=== PATIENT | male | born 1965 | race Caucasian/White ===

== ENCOUNTER 2017-03-28 03:55 | Emergency (ER) | payer OTHER ==
[2017-03-28 04:02] VITALS: BP 133/83
[2017-03-28] MEDS ORDERED: HYDROCODONE/ACETAMINOPHEN 5-325 MG 6 TAB/DSPK PO PRN (04:42)
--- NOTE | 2017-03-28 04:46 | ER Document Report ---
HPI - HPI Patient complains to provider of: Lower back pain. Pain Level: 5 Context: Patient is a 51-year-old male who comes emergency department for chief complaint of lower back pain. He states he always has back pain, mainly in the mid to lower back, states he is retired and has degenerative disc disease from it. He is on gabapentin for it. He states tonight he feels like he has worse muscle spasms than usual and he has difficulty moving around even with his cane. He denies radiating symptoms down his legs, denies numbness, denies incontinence, denies fever, denies history of IV drug abuse. He states that he is pending a referral to get a spinal stimulator placed to help with his symptoms. [facility] - DERM Skin Color: Normal, [place] Past Medical History - General Information source: Patient - Social History Smoking Status: Never Smoker Frequency of alcohol use: None Drug Abuse: None Lives with: Family Family History: Arthritis, DM, Hyperlipidemia, Hypertension, Malignancy - Past Medical History Cardiac Medical History: Reports: Hx Hypercholesterolemia, Hx Hypertension Denies: Hx Coronary Artery Disease, Hx Heart Attack Pulmonary Medical History: Reports: Hx Asthma Denies: Hx Bronchitis, Hx COPD, Hx Pneumonia Neurological Medical History: Reports: Hx Migraine. Denies: Hx Cerebrovascular Accident, Hx Seizures Endocrine Medical History: Reports: Hx Diabetes Mellitus Type 2 - Borderline Renal/ Medical History: Denies: Hx Peritoneal Dialysis Musculoskeltal Medical History: Reports Hx Arthritis, Reports Hx Musculoskeletal Deformity, Reports Hx Musculoskeletal Trauma Psychiatric Medical History: Reports: Hx Depression - PTSD Past Surgical History: Reports: Hx Abdominal Surgery, Hx Oral Surgery, Hx Orthopedic Surgery - l4-l5, l5-s1 - Immunizations Hx Diphtheria, Pertussis, Tetanus Vaccination: Yes Vertical Provider Document - CONSTITUTIONAL General Appearance: WD/WN, No Apparent Distress - INFECTION CONTROL TRAVEL OUTSIDE OF THE [place] IN LAST 30 DAYS: No - HEENT HEENT: Atraumatic, Normal ENT Exam, Normocephalic - NECK Neck: Normal Inspection - RESPIRATORY Respiratory: Breath Sounds Normal, No Respiratory Distress O2 Sat by Pulse Oximetry: 98 - CARDIOVASCULAR Cardiovascular: Regular Rate, Regular Rhythm - GI/ABDOMEN Gastrointestinal: Abdomen Soft, Abdomen Non-Tender - BACK Back: negative: Normal Inspection - Patient moves with obvious discomfort. No midline tenderness. No saddle anesthesia. Tenderness over the general left lumbar and gluteal areas. Negative straight leg raise. Normal upper and lower extremity range of motion, strength, distal neurovascular exam Course - Re-evaluation Re-evalutation: Patient with no midline back tenderness, has significant muscle spasm on exam, ambulates with obvious discomfort. Negative straight leg raise. No neurological deficits. No concerning reported symptoms. Patient requesting treatment for muscle spasm. Because of the significant amount of muscle spasm he appears to have patient will be treated with diazepam. Discussed follow-up with primary care, he is already pending a referral for a stimulator for his back to be placed. Discussed return precautions in detail, patient states understanding and agreement. - Vital Signs Vital signs: Temp Pulse Resp BP Pulse Ox 97.6 F 74 20 133/83 H 98 03/28/17 03:55 03/28/17 03:55 03/28/17 03:55 03/28/17 03:55 03/28/17 03:55 Discharge - Discharge Clinical Impression: Muscle spasm Lower back pain Qualifiers: Chronicity: unspecified Back pain laterality: left Sciatica presence: without sciatica Qualified Code(s): M54.5 - Low back pain Condition: Stable Disposition: HOME, SELF-CARE Additional Instructions: Examination consistent with muscular spasm secondary to your chronic lower back pain. I recommend taking the Valium as prescribed, apply heat to the area, and rest. Follow-up with your referral for additional management of your back. Return if you develop any concerning or worsening symptoms including numbness, loss of bowel or bladder control, fever, or any other concerning symptoms. Prescriptions: Diazepam [Valium 5 mg Tablet] 1 - 2 tab PO TID #20 tablet
== END 2017-03-28 04:50 | disposition home or self-care (01) ==
LOC: ER 03:55
DX: M62.838 Other muscle spasm (principal); M54.5 Low back pain; E78.00 Pure hypercholesterolemia, unspecified; I10 Essential (primary) hypertension; E11.9 Type 2 diabetes mellitus without complications
CPT/HCPCS: 99283

== ENCOUNTER 2018-01-12 11:39 | Emergency (ER) | payer OTHER ==
[2018-01-12] MEDS ORDERED: ACETAMINOPHEN 325 MG TABLET PO ONE (12:05)
--- NOTE | 2018-01-12 12:08 | ER Document Report ---
ED Respiratory Problem - General Chief Complaint: Cold Symptoms Stated Complaint: COUGH,CONGESTION,EAR PAIN Time Seen by Provider: 01/12/18 11:47 Mode of Arrival: Ambulatory Information source: Patient, Parent Notes: 52-year-old male presented ED for complaint of cough congestion left ear pain and dehydration. His vital signs are stable. His lung sounds are clear. He was seen by a primary provider yesterday and started on doxycycline and Tessalon Perles. Patient states that he was told that he had a left ear infection yesterday there is no ear infection there today. Patient is 100% disabled . He does have a history of asthma COPD implanted device in his low back for herniated disc he also has history of blood pressure cholesterol migraines PTSD ADHD and OCD. Patient is alert oriented respirations regular and unlabored and able to walk with a even steady gait. TRAVEL OUTSIDE OF THE [place] IN LAST 30 DAYS: No - HPI Patient complains to provider of: Asthma, COPD, Cough Onset: Last week Duration: Continuous Initiating Event: URI Quality of pain: Achy, Throbbing Severity: Moderate Pain Level: 4 Context: Hx asthma, Hx COPD Cough: Nonproductive Sputum amount: None Associated symptoms: Earache, Fever - None today, PND, Runny nose, Sinus pain/ pressure, Sore Throat. denies: Wheezing Similar symptoms previously: Yes Recently seen / treated by doctor: Yes - Yesterday - Related Data Allergies/Adverse Reactions: cyclobenzaprine [From Flexeril] Allergy (Verified 01/12/18 12:23) ibuprofen [Ibuprofen] Allergy (Verified 01/12/18 11:59) lisinopril Allergy (Verified 01/12/18 12:23) venlafaxine Allergy (Verified 01/12/18 12:23) Vomiting Past Medical History - General Information source: Patient - Social History Smoking Status: Former Smoker Cigarette use (# per day): No Chew tobacco use (# tins/day): No Smoking Education Provided: No Frequency of alcohol use: None Drug Abuse: None Lives with: Family Family History: Arthritis, DM, Hyperlipidemia, Hypertension, Malignancy Patient has suicidal ideation: No Patient has homicidal ideation: No - Past Medical History Cardiac Medical History: Reports: Hx Hypercholesterolemia, Hx Hypertension Pulmonary Medical History: Reports: Hx Asthma, Hx COPD EENT Medical History: Reports: None Neurological Medical History: Reports: Hx Migraine Endocrine Medical History: Reports: Hx Diabetes Mellitus Type 2 Renal/ Medical History: Reports: None Malignancy Medical History: Reports None GI Medical History: Reports: None Musculoskeltal Medical History: Reports Hx Arthritis, Reports Hx Musculoskeletal Deformity, Reports Hx Musculoskeletal Trauma Skin Medical History: Reports None Psychiatric Medical History: Reports: Hx Attention Deficit Hyperactivity Disorder, Hx Depression - PTSD, Hx Obsessive Compulsive Disorder, Hx Post Traumatic Stress Disorder Traumatic Medical History: Reports: None Infectious Medical History: Reports: None Past Surgical History: Reports: Hx Abdominal Surgery - Lipomas removed, Hx Oral Surgery, Hx Orthopedic Surgery - l4-l5, l5-s1; stimulator - Immunizations Immunizations up to date: Yes Hx Diphtheria, Pertussis, Tetanus Vaccination: Yes Review of Systems - Review of Systems Constitutional: Recent illness EENT: Nose congestion, Nose discharge, Sinus pressure, Sinus discharge Cardiovascular: No symptoms reported Respiratory: Cough Gastrointestinal: No symptoms reported Genitourinary: No symptoms reported Male Genitourinary: No symptoms reported Musculoskeletal: Muscle pain, Muscle stiffness Skin: No symptoms reported Hematologic/Lymphatic: No symptoms reported Neurological/Psychological: No symptoms reported -: Yes All other systems reviewed and negative Physical Exam - Vital signs Vitals: Temp Pulse Resp BP Pulse Ox 98.2 F 68 20 131/76 H 95 01/12/18 11:44 01/12/18 11:44 01/12/18 11:44 01/12/18 11:44 01/12/18 11:44 - HEENT Head: Normocephalic, Atraumatic Eyes: Normal Pupils: PERRL Ears: Normal External canal: Normal Tympanic membrane: Normal Sinus: Normal Nasal: Purulent discharge, Swelling Mouth/Lips: Normal Mucous membranes: Normal Pharynx: Post nasal drainage. No: Erythema, Exudate, Peritonsillar abscess, Retropharyngeal abscess, Tonsillar hypertrophy, Uvular edema, Potential airway comprom. Neck: Normal - Respiratory Respiratory status: No respiratory distress Chest status: Nontender Breath sounds: Nonproductive cough Chest palpation: Normal Course - Re-evaluation Re-evalutation: 01/12/18 17:05 Patient signs and symptoms were consistent with an upper respiratory infection. Patient has high blood pressure and was taking guaifenesin. Patient was instructed that with blood pressure problems he is supposed to take Coricidin HB and use saline sprays and gargles for his symptoms as the guaifenesin can actually and really increase his blood pressure. Patient was instructed to follow-up with her primary doctor. After performing a Medical Screening Examination, I estimate there is LOW risk for ACUTE CORONARY SYNDROME, RESPIRATORY FAILURE, SEPSIS OR MENINGITIS, thus I consider the discharge disposition reasonable. I have reevaluated this patient multiple times and no significant life threatening changes are noted. The patient and I have discussed the diagnosis and risks, and we agree with discharging home with close follow-up. We also discussed returning to the Emergency Department immediately if new or worsening symptoms occur. We have discussed the symptoms which are most concerning (e.g., changing or worsening pain, trouble swallowing or breathing, neck stiffness, fever) that necessitate immediate return. - Vital Signs Vital signs: Temp Pulse Resp BP Pulse Ox 97.9 F 67 18 134/91 H 95 01/12/18 13:21 01/12/18 13:21 01/12/18 13:21 01/12/18 13:21 01/12/18 13:21 Discharge - Discharge Clinical Impression: URI (upper respiratory infection) Qualifiers: URI type: unspecified URI Qualified Code(s): J06.9 - Acute upper respiratory infection, unspecified Condition: Stable Disposition: HOME, SELF-CARE Instructions: Family Physicians / Practices Additional Instructions: UPPER RESPIRATORY ILLNESS: You have a viral infection of the respiratory passages -- a "cold." This common infection causes nasal congestion, drainage, and often sore throat and cough. It is highly contagious. The disease usually lasts about 10 to 14 days. There is no "cure" for the viral infection -- it must run its course. If there is a complication, such as bacterial infection in the nose, sinuses, middle ear, or bronchial tubes, antibiotics may be required. The antibiotics won't affect the virus. Drink plenty of fluids. A humidifier may help. An expectorant medication or decongestant may make you more comfortable. Use acetaminophen or ibuprofen for fever or aches. See the doctor if fever persists over two days, if there is any significant worsening of your symptoms, or if you simply fail to improve as expected. Continue your medication as prescribed by your PCP. Your x-ray does not show any acute changes. The does not show a pneumonia. The Tessalon Perles are for cough. Gargle with warm salt and soda solution to remove the postnasal drip from the back yet throat that is causing you to cough. Salt and soda solution 1 quart of water 1 tablespoon of salt 1 teaspoon of baking soda Mixed 3 ingredients together and boil for 1 minute Placed in a covered quart jar Use 1/2 ounce of cold solution to gargle 3 times a day COUGH-SUPPRESSANT & EXPECTORANT MEDICATION: You are to use a cough medication as needed for relief of symptoms. This medicine is a combination of an expectorant (to make the mucous thinner and more easily "coughed up") and a cough suppressant (to reduce the frequency of coughing). The cough-suppressant medicine is related to narcotics. You may experience mild nausea and sleepiness. Some patients who are very sensitive to narcotics may have stomach pain from this medicine. Taking the medicine with food reduces these side effects. Do not drive or work with machinery until you know how this medicine affects you. The expectorant should have no side effects. Iodine-containing expectorants (such as organidin) should not be taken by persons with active thyroid disease unless approved by your doctor. Call the doctor if you develop shortness of breath, hives, rash, itching, lightheadedness, or severe nausea and vomiting. USE OF ACETAMINOPHEN (Tylenol): Acetaminophen may be taken for pain relief or fever control. It's much safer than aspirin, offering a wider range of "safe" dosages. It is safe during . Some brand names are Tylenol, Panadol, Datril, Anacin 3, Tempra, and Liquiprin. Acetaminophen can be repeated every four hours. The following are maximum recommended dosages: >89 pounds or adults 650 mg to 900 mg Acetaminophen can be repeated every four hours. Maximum dose not to exceed 4000 mg a day. FOLLOW-UP CARE: If you have been referred to a physician for follow-up care, call the physician s office for an appointment as you were instructed or within the next two days. If you experience worsening or a significant change in your symptoms, notify the physician immediately or return to the Emergency Department at any time for re-evaluation. Forms: Elevated Blood Pressure
--- NOTE | 2018-01-12 12:44 | RADIOLOGY REPORT (SQ) ---
EXAM DESCRIPTION: CHEST 2 VIEWS COMPLETED DATE/TIME: 01/12/2018 12:28 pm REASON FOR STUDY: cough, congestion COMPARISON: Two-view chest 07/15/2012 EXAM PARAMETERS: NUMBER OF VIEWS: two views TECHNIQUE: Digital Frontal and Lateral radiographic views of the chest acquired. RADIATION DOSE: NA LIMITATIONS: none FINDINGS: LUNGS AND PLEURA: No opacities, masses or pneumothorax. No pleural effusion. MEDIASTINUM AND HILAR STRUCTURES: No masses or contour abnormalities. HEART AND VASCULAR STRUCTURES: Heart normal size. No evidence for failure. BONES: No acute findings. HARDWARE: Spinal stimulator electrodes are present over the lower thoracic spinal canal OTHER: No other significant finding. IMPRESSION: NO ACUTE RADIOGRAPHIC FINDING IN THE CHEST. TECHNICAL DOCUMENTATION: JOB ID: [id number] [employer]- All Rights Reserved Reading location - IP/workstation name: [email or web address]
[2018-01-12 13:23] VITALS: BP 134/91
== END 2018-01-12 13:23 | disposition home or self-care (01) ==
LOC: ER 11:39
DX: J06.9 Acute upper respiratory infection, unspecified (principal); H92.02 Otalgia, left ear; E86.0 Dehydration; E78.00 Pure hypercholesterolemia, unspecified; I10 Essential (primary) hypertension; E11.9 Type 2 diabetes mellitus without complications; Z88.6 Allergy status to analgesic agent
CPT/HCPCS: 71046; 99283

== ENCOUNTER 2019-08-19 14:02 | Emergency (ER) | payer OTHER ==
--- NOTE | 2019-08-19 14:22 | ER Document Report ---
ED Medical Screen (RME) - General Chief Complaint: Slurred Speech Stated Complaint: DIZZY/WEAK/SLURRED SPEECH Time Seen by Provider: 08/19/19 14:09 TRAVEL OUTSIDE OF THE [place] IN LAST 30 DAYS: No - HPI Notes: 08/19/19 14:19 53-year-old male to the emergency department with complaints of intermittent episodes of slurred speech since Thursday. His significant other who is with him states that these episodes started on Thursday and it will sound like he is drunk. She states he will be normal until all of a sudden he is slurring his speech. Patient states that he has numbness and tingling all over his body from past injuries so he is not really sure if he has increased numbness and tingling anywhere. He denies weakness in arm or leg. He denies vision loss. Denies any chest pain. He does admit to some slight nausea. He admits to some slight slight shortness of breath. He also states that he feels dizzy. He also states that he has had a headache since March 2019. He is unsure if his slurred speech gets worse when his headache gets worse. He states that he is prediabetic but he takes metformin. He is [facility]. Brief neurological exam illustrates cranial nerves II through XII intact, no slurred speech, no pronator drift, normal [id number] bilaterally, no leg drift, [id number] performed by the right leg is intact [id number] performed by the left leg is mildly decreased from an injury in the . Patient states this is not new. He has no facial droop. He has no nystagmus. He is alert and oriented x4. I performed a brief medical screening exam on the patient determined that he will need further evaluation by me inside provider. I placed initial orders and imaging studies in order to help expedite the patient's care. - Related Data Allergies/Adverse Reactions: cyclobenzaprine [From Flexeril] Allergy (Verified 01/12/18 12:23) ibuprofen [Ibuprofen] Allergy (Verified 01/12/18 11:59) lisinopril Allergy (Verified 01/12/18 12:23) venlafaxine Allergy (Verified 01/12/18 12:23) Vomiting Past Medical History - Past Medical History Cardiac Medical History: Reports: Hx Hypercholesterolemia, Hx Hypertension Pulmonary Medical History: Reports: Hx Asthma, Hx COPD Neurological Medical History: Reports: Hx Migraine Endocrine Medical History: Reports: Hx Diabetes Mellitus Type 2 Renal/ Medical History: Denies: Hx Peritoneal Dialysis Musculoskeltal Medical History: Reports Hx Arthritis, Reports Hx Musculoskeletal Deformity, Reports Hx Musculoskeletal Trauma Psychiatric Medical History: Reports: Hx Attention Deficit Hyperactivity Disorder, Hx Depression - PTSD, Hx Obsessive Compulsive Disorder, Hx Post Traumatic Stress Disorder Past Surgical History: Reports: Hx Abdominal Surgery - Lipomas removed, Hx Oral Surgery, Hx Orthopedic Surgery - l4-l5, l5-s1; stimulator - Immunizations Immunizations up to date: Yes Hx Diphtheria, Pertussis, Tetanus Vaccination: Yes Physical Exam - Vital signs Vitals: Temp Pulse Resp BP Pulse Ox 98.1 F 100 20 148/83 H 100 08/19/19 14:11 08/19/19 14:11 08/19/19 14:11 08/19/19 14:11 08/19/19 14:11 Course - Vital Signs Vital signs: Temp Pulse Resp BP Pulse Ox 98.1 F 100 20 148/83 H 100 08/19/19 14:11 08/19/19 14:11 08/19/19 14:11 08/19/19 14:11 08/19/19 14:11
--- NOTE | 2019-08-19 15:31 | RADIOLOGY REPORT (SQ) ---
EXAM DESCRIPTION: CHEST SINGLE VIEW COMPLETED DATE/TIME: 08/19/2019 3:19 pm REASON FOR STUDY: slurred speech, exhaustion COMPARISON: PA and lateral views of the chest from 01/12/2018. EXAM PARAMETERS: NUMBER OF VIEWS: One view. TECHNIQUE: An AP view of the chest was obtained. RADIATION DOSE: NA LIMITATIONS: None. FINDINGS: LUNGS AND PLEURA: No consolidation, pleural effusion or pneumothorax. MEDIASTINUM AND HILAR STRUCTURES: No mediastinal or hilar contour abnormality. HEART AND VASCULAR STRUCTURES: The cardiac silhouette and pulmonary vasculature are within normal karimi its. BONES: No acute findings. HARDWARE: Spinal stimulator. OTHER: No other finding. IMPRESSION: No acute cardiopulmonary process. TECHNICAL DOCUMENTATION: JOB ID: [id number] [employer] All Rights Reserved Reading location - IP/workstation name: [email or web address]
[2019-08-19 15:33] LABS: ABSOLUTE EOSINOPHILS # (AUTO) 0.1 10^3/uL (0.0-0.6); ABSOLUTE LYMPHOCYTES (AUTO) 1.3 10^3/uL (0.5-4.7); ABSOLUTE MONOCYTES (AUTO) 0.3 10^3/uL (0.1-1.4); BASOPHILS % (AUTO) 0.3 % (0-2); EOSINOPHILS % (AUTO) 2.2 % (0-6); HEMATOCRIT 38.3 % (37.9-51.0); LYMPHOCYTES % (AUTO) 22.3 % (13-45); MEAN CORPUSCULAR HEMOGLOBIN 31.1 pg (27.0-33.4); MEAN CORPUSCULAR HGB CONC 33.9 g/dL (32.0-36.0); MEAN CORPUSCULAR VOLUME 92 fl (80-97); PLATELET COUNT 128 10^3/uL (150-450); RED BLOOD COUNT 4.18 10^6/uL (4.35-5.55); RED CELL DISTRIBUTION WIDTH 14.8 % (11.5-14.0); SEGMENTED NEUTROPHILS % (AUTO) 70.2 % (42-78); TOTAL CELLS COUNTED % (AUTO) 100 %; WHITE BLOOD COUNT 5.7 10^3/uL (4.0-10.5)
[2019-08-19 15:39] LABS: APPEARANCE,URINE CLEAR; BILIRUBIN,URINE NEGATIVE (NEGATIVE); COLOR,URINE YELLOW; GLUCOSE, URINE >=500 mg/dL (NEGATIVE); KETONES,URINE TRACE mg/dL (NEGATIVE); LEUKOCYTE ESTERASE,URINE NEGATIVE (NEGATIVE); NITRITE,URINE NEGATIVE (NEGATIVE); PROTEIN,URINE NEGATIVE (NEGATIVE); URINE SPECIFIC GRAVITY 1.022; UROBILINOGEN,URINE NEGATIVE mg/dL (<2.0)
--- NOTE | 2019-08-19 15:48 | RADIOLOGY REPORT (SQ) ---
EXAM DESCRIPTION: CT HEAD WITHOUT COMPLETED DATE/TIME: 08/19/2019 3:25 pm REASON FOR STUDY: Episodes of slurred speech since Thursday COMPARISON: None. TECHNIQUE: Axial images acquired through the brain without intravenous contrast. Images reviewed wi th bone, brain and subdural windows. Additional sagittal and coronal reconstructions were generated. Images stored on PACS. All CT scanners at this facility use dose modulation, iterative reconstruction, and/or weight based d osing when appropriate to reduce radiation dose to as low as reasonably achievable (ALARA). [facility]: Dose Right [facility]: CareDose [facility]: Dose Right [facility]: Teradose 4D [facility]: Cubito RADIATION DOSE: CT Rad equipment meets quality standard of care and radiation dose reduction techniq ues were employed. CTDIvol: 53.2 mGy. DLP: 1044 mGy-cm. LIMITATIONS: None. FINDINGS: There is no acute intracranial hemorrhage, vascular territorial infarct, extra-axial fluid collection, mass effect or midline shift. There is no effacement of cerebral sulci or basal subarac hnoid cisterns. The danielle-white matter differentiation is preserved. The caliber the ventricles is c oncordant with the degree of sulcation. The orbits and globes are intact. The paranasal sinuses and the mastoid air cells are clear. There is no fracture of the calvarium. IMPRESSION: No acute intracranial abnormality. EVIDENCE OF ACUTE STROKE: NO. COMMENT: Quality ID # [id number]: Final reports with documentation of one or more dose reduction techniques (e.g., Automated exposure control, adjustment of the mA and/or kV according to patient size, use of iterative reconstruction technique) TECHNICAL DOCUMENTATION: JOB ID: [id number] [employer]- All Rights Reserved Reading location - IP/workstation name: [email or web address]
[2019-08-19 15:53] LABS: ALBUMIN 3.8 g/dL (3.5-5.0); ALKALINE PHOSPHATASE 76 U/L (38-126); ANION GAP 8 (5-19); ASPARTATE AMINO TRANSFERASE 22 U/L (17-59); BILIRUBIN,DIRECT 0.3 mg/dL (0.0-0.4); BILIRUBIN,TOTAL 0.4 mg/dL (0.2-1.3); BLOOD UREA NITROGEN 16 mg/dL (7-20); CALCIUM 9.2 mg/dL (8.4-10.2); CARBON DIOXIDE 31 mmol/L (22-30); CHLORIDE 98 mmol/L (98-107); GLUCOSE 301 mg/dL (75-110); POTASSIUM 4.6 mmol/L (3.6-5.0); TOTAL PROTEIN 6.9 g/dL (6.3-8.2)
[2019-08-19 15:54] LABS: ACETAMINOPHEN < 10 ug/mL (10-30); ALCOHOL < 10 mg/dL (NONE DETECTED); SALICYLATE < 1.0 mg/dL (2.0-20.0)
[2019-08-19 15:55] LABS: URINE AMPHETAMINES SCREEN NEGATIVE; URINE BARBITURATES SCREEN NEGATIVE; URINE BENZODIAZEPINES SCREEN NEGATIVE; URINE COCAINE SCREEN NEGATIVE; URINE MARIJUANA (THC) SCREEN NEGATIVE; URINE METHADONE SCREEN NEGATIVE; URINE PHENCYCLIDINE SCREEN NEGATIVE
[2019-08-19] MEDS ORDERED: MECLIZINE HCL 25 MG TABLET PO ONE (19:53)
--- NOTE | 2019-08-19 21:12 | ER Document Report ---
ED General - General Chief Complaint: Dizziness Stated Complaint: DIZZY/WEAK/SLURRED SPEECH Time Seen by Provider: 08/19/19 14:09 [facility] Care Provider: [facility] [Primary Care Provider] - Follow up as needed Information source: Patient Notes: Patient is a 53-year-old male presenting to the emergency department chief complaint of dizziness. Patient states this started on Thursday and patient has had increased sleep is had the sensation of being unstable and intermittently has had slurred speech. Patient has a prior medical history of diabetes and hypertension. At time of presentation patient is alert and oriented in no acute distress answering all questions appropriately. TRAVEL OUTSIDE OF THE [place] IN LAST 30 DAYS: No - HPI Onset: Other - This past Thursday Onset/Duration: Gradual, Persistent Quality of pain: No pain Severity: Moderate Pain Level: 0 Associated symptoms: Weakness Exacerbated by: Standing Relieved by: Remaining still Similar symptoms previously: No Recently seen / treated by doctor: No - Related Data Allergies/Adverse Reactions: cyclobenzaprine [From Flexeril] Allergy (Verified 01/12/18 12:23) ibuprofen [Ibuprofen] Allergy (Verified 01/12/18 11:59) lisinopril Allergy (Verified 01/12/18 12:23) venlafaxine Allergy (Verified 01/12/18 12:23) Vomiting Past Medical History - General Information source: Patient, Relative - Social History Smoking Status: Never Smoker Frequency of alcohol use: None Drug Abuse: None Lives with: Spouse/Significant other Family History: Arthritis, DM, Hyperlipidemia, Hypertension, Malignancy Patient has suicidal ideation: No Patient has homicidal ideation: No - Past Medical History Cardiac Medical History: Reports: Hx Hypercholesterolemia, Hx Hypertension Pulmonary Medical History: Reports: Hx Asthma, Hx COPD Neurological Medical History: Reports: Hx Migraine, Other - Patient reports traumatic brain injury Endocrine Medical History: Reports: Hx Diabetes Mellitus Type 2 Renal/ Medical History: Denies: Hx Peritoneal Dialysis Malignancy Medical History: Reports None GI Medical History: Reports: None Musculoskeletal Medical History: Reports Hx Arthritis, Reports Hx Musculoskeletal Deformity, Reports Hx Musculoskeletal Trauma Psychiatric Medical History: Reports: Hx Attention Deficit Hyperactivity Disorder, Hx Depression - PTSD, Hx Obsessive Compulsive Disorder, Hx Post Traumatic Stress Disorder Traumatic Medical History: Reports: Hx Traumatic Brain Injury Past Surgical History: Reports: Hx Abdominal Surgery - Lipomas removed, Hx Oral Surgery, Hx Orthopedic Surgery - l4-l5, l5-s1; stimulator - Immunizations Immunizations up to date: Yes Hx Diphtheria, Pertussis, Tetanus Vaccination: Yes Review of Systems - Review of Systems Constitutional: Malaise, Weakness EENT: Nose pain Cardiovascular: No symptoms reported Respiratory: No symptoms reported Gastrointestinal: No symptoms reported Genitourinary: No symptoms reported Male Genitourinary: No symptoms reported Musculoskeletal: No symptoms reported Skin: No symptoms reported Hematologic/Lymphatic: No symptoms reported Neurological/Psychological: No symptoms reported, Confusion, Weakness, Speech impairment, Other - Dizziness -: Yes All other systems reviewed and negative Physical Exam - Vital signs Vitals: Temp Pulse Resp BP Pulse Ox 98.1 F 100 20 148/83 H 100 08/19/19 14:11 08/19/19 14:11 08/19/19 14:11 08/19/19 14:11 08/19/19 14:11 Interpretation: Normal - General General appearance: Appears well, Alert - HEENT Head: Normocephalic, Atraumatic Eyes: Normal Pupils: PERRL - Respiratory Respiratory status: No respiratory distress Chest status: Nontender Breath sounds: Normal Chest palpation: Normal - Cardiovascular Rhythm: Regular Heart sounds: Normal auscultation Murmur: No - Abdominal Inspection: Normal Distension: No distension Bowel sounds: Normal Tenderness: Nontender Organomegaly: No organomegaly - Back Back: Normal, Nontender - Extremities General upper extremity: Normal inspection, Nontender, Normal color, Normal ROM, Normal temperature General lower extremity: Normal inspection, Nontender, Normal color, Normal ROM, Normal temperature, Normal weight bearing. No: Jose's sign - Neurological Neuro grossly intact: Yes Cognition: Normal Orientation: AAOx4 Selin Coma Scale Eye Opening: Spontaneous [place] Coma Scale Verbal: Oriented [place] Coma Scale Motor: Obeys Commands [place] Coma Scale Total: 15 Speech: Normal Motor strength normal: LUE, RUE, LLE, RLE Sensory: Normal Notes: At time of evaluation the patient is alert and oriented x3, Glascow coma scale of 15, cranial nerves II through XII are grossly intact with the exception of subjective dizziness, sensations intact, motor is intact, there are no signs of nystagmus, there is no pronator drift, there is no facial asymmetry, tongue protrusion is midline, reflexes are equal and bilateral, patient ambulates without ataxia, patient answers all questions appropriately follows commands appropriately. - Psychological Associated symptoms: Normal affect, Normal mood - Skin Skin Temperature: Warm Skin Moisture: Dry Skin Color: Normal Course - Re-evaluation Re-evalutation: 08/19/19 21:12 Patient has been reevaluated multiple times while in emergency department patient is likewise been kept on a monitoring coordinator without decompensation. On most recent reevaluation patient is alert oriented no acute distress we did review his laboratory EKG and radiologic results which demonstrate only significant finding of elevated blood glucose. Patient will receive 25 mg p.o. Antivert and will be reassessed. I have spoken at great length with the patient and family members of the need for the patient to decrease his sugar intake. Patient states that he probably will not be able to give up his Pepsi and sweet tea. 08/19/19 22:29 On reevaluation patient states that the Antivert seems to have helped and he feels much better patient states he feels well enough to be discharged home. I recommend that the patient follow-up with his local provider in the next several days and take medication as prescribed. Patient will be prescribed Antivert. - Vital Signs Vital signs: Temp Pulse Resp BP Pulse Ox 98.1 F 100 20 148/83 H 100 08/19/19 14:11 08/19/19 14:11 08/19/19 14:11 08/19/19 14:11 08/19/19 14:11 - Laboratory Result Diagrams: 08/19/19 14:57 08/19/19 14:57 Laboratory results interpreted by me: 08/19/19 08/19/19 08/19/19 14:57 14:57 14:57 RBC 4.18 L Hgb 13.0 L RDW 14.8 H Plt Count 128 L Carbon Dioxide 31 H Glucose 301 H Urine Glucose (UA) >=500 H Urine Ketones TRACE H Salicylates < 1.0 L Acetaminophen < 10 L Discharge - Discharge Clinical Impression: Dizziness, Hyperglycemia due to type 2 diabetes mellitus Condition: Stable Disposition: HOME, SELF-CARE Instructions: Dizziness ([facility]) Prescriptions: Meclizine HCl [Antivert 25 mg Tablet] 25 mg PO TID PRN #10 tablet PRN Reason: [facility]errals: [facility] [[facility]] - Follow up as needed
[2019-08-19 22:39] VITALS: BP 135/89
--- NOTE | 2019-08-20 23:35 | EKG REPORT ---
SEVERITY:- NORMAL ECG - SINUS RHYTHM : Confirmed by: Juarez Samayoa 20-Aug-2019 23:35:01
== END 2019-08-19 22:57 | disposition home or self-care (01) ==
LOC: ER 14:02
DX: R42 Dizziness and giddiness (principal); E11.65 Type 2 diabetes mellitus with hyperglycemia; R47.81 Slurred speech; R53.1 Weakness; J44.9 Chronic obstructive pulmonary disease, unspecified; I10 Essential (primary) hypertension; R53.81 Other malaise; Z79.84 Long term (current) use of oral hypoglycemic drugs; Z88.8 Allergy status to other drugs, medicaments and biological substances
CPT/HCPCS: 36415; 70450; 71045; 80053; 80307; 81001; 83735; 84484; 85025; 93005; 93010; 99284

== ENCOUNTER 2020-06-29 15:52 | Observation (INO) | payer OTHER ==
--- NOTE | 2020-06-29 16:07 | ER Document Report ---
ED Medical Screen (RME) - General Chief Complaint: Numbness Stated Complaint: NUMBNESS/RIGHT SIDE OF BODY Time Seen by Provider: 06/29/20 16:04 Primary Care Provider: [facility] [Primary Care Provider] - Follow up as needed Mode of Arrival: Ambulatory Notes: 54-year-old male presented to ED for complaint of numbness to the right side of his body. He states he also felt like he was very hot and flushed but he was afebrile at the time of seeing him. He did have full range of motion to both arms both legs was able to answer questions appropriately. He states he has had the numbness to the right side of his body since 9:00 in the morning. I did go back to speak with Dr. Alanis who stated that I would need to go ahead and call the stroke protocol but since it was more than 6 hours he would not be able to receive the medications. She stated he would need all the blood work and CT and be in a better manner immediately. He states he is also had other symptoms. He was unsteady when I tried to get him up and walking. I did take him back to the CT I had the CT completed the x-ray completed and then took him to room 11. They did [address] him on the monitor. I did tell Dr. Alanis that the radiologist stated that the CT was negative for a bleed. I have greeted and performed a rapid initial assessment of this patient. A comprehensive ED assessment and evaluation of the patient, analysis of test results and completion of medical decision making process will be conducted by an additional ED providers. TRAVEL OUTSIDE OF THE [place] IN LAST 30 DAYS: No - Related Data Allergies/Adverse Reactions: cyclobenzaprine [From Flexeril] Allergy (Verified 01/12/18 12:23) ibuprofen [Ibuprofen] Allergy (Verified 01/12/18 11:59) lisinopril Allergy (Verified 01/12/18 12:23) venlafaxine Allergy (Verified 01/12/18 12:23) Vomiting Past Medical History - Past Medical History Cardiac Medical History: Reports: Hx Hypercholesterolemia, Hx Hypertension Pulmonary Medical History: Reports: Hx Asthma, Hx COPD Neurological Medical History: Reports: Hx Migraine Endocrine Medical History: Reports: Hx Diabetes Mellitus Type 2 Renal/ Medical History: Denies: Hx Peritoneal Dialysis Musculoskeltal Medical History: Reports Hx Arthritis, Reports Hx Musculoskeletal Deformity, Reports Hx Musculoskeletal Trauma Psychiatric Medical History: Reports: Hx Attention Deficit Hyperactivity Disorder, Hx Depression - PTSD, Hx Obsessive Compulsive Disorder, Hx Post Traumatic Stress Disorder Traumatic Medical History: Reports: Hx Traumatic Brain Injury Past Surgical History: Reports: Hx Abdominal Surgery - Lipomas removed, Hx Oral Surgery, Hx Orthopedic Surgery - l4-l5, l5-s1; stimulator - Immunizations Immunizations up to date: Yes Hx Diphtheria, Pertussis, Tetanus Vaccination: Yes Physical Exam - Vital signs Vitals: Temp Pulse Resp BP Pulse Ox 97.8 F 89 20 127/79 H 99 06/29/20 16:07 06/29/20 16:07 06/29/20 16:07 06/29/20 16:07 06/29/20 16:07 Course - Vital Signs Vital signs: Temp Pulse Resp BP Pulse Ox 97.8 F 89 14 113/69 100 06/29/20 16:07 06/29/20 16:58 06/29/20 18:06 06/29/20 17:31 06/29/20 18:06 Doctor's Discharge - Discharge [facility]errals: [facility] [[facility]] - Follow up as needed
--- NOTE | 2020-06-29 16:44 | RADIOLOGY REPORT (SQ) ---
EXAM DESCRIPTION: CHEST SINGLE VIEW IMAGES COMPLETED DATE/TIME: 06/29/2020 4:34 pm REASON FOR STUDY: Right-sided numbness COMPARISON: AP view of the chest from 08/19/2019. EXAM PARAMETERS: NUMBER OF VIEWS: One view. TECHNIQUE: An AP view of the chest was obtained. RADIATION DOSE: NA LIMITATIONS: None. FINDINGS: LUNGS AND PLEURA: No consolidation, pleural effusion or pneumothorax. MEDIASTINUM AND HILAR STRUCTURES: No mediastinal or hilar contour abnormality. HEART AND VASCULAR STRUCTURES: The cardiac silhouette and pulmonary vasculature are within normal karimi its. BONES: No acute findings. HARDWARE: None in the chest. OTHER: No other finding. IMPRESSION: No acute cardiopulmonary process. TECHNICAL DOCUMENTATION: JOB ID: [id number] 2010 [email or web address]- All Rights Reserved Reading location - IP/workstation name: [email or web address]
--- NOTE | 2020-06-29 16:48 | RADIOLOGY REPORT (SQ) ---
EXAM DESCRIPTION: CT HEAD WITHOUT IMAGES COMPLETED DATE/TIME: 06/29/2020 3:26 pm REASON FOR STUDY: Right-sided numbness. Stroke protocol. COMPARISON: 08/19/2019 TECHNIQUE: Axial images acquired through the brain without intravenous contrast. Images reviewed wi th bone, brain and subdural windows. Additional sagittal and coronal reconstructions were generated. Images stored on PACS. All CT scanners at this facility use dose modulation, iterative reconstruction, and/or weight based d osing when appropriate to reduce radiation dose to as low as reasonably achievable (ALARA). [facility]: Dose Right [facility]: CareDose [facility]: Dose Right [facility]: Teradose 4D [facility]: [employer] RADIATION DOSE: CT Rad equipment meets quality standard of care and radiation dose reduction techniq ues were employed. CTDIvol: 53.2 mGy. DLP: 1070 mGy-cm. mGy. LIMITATIONS: None. FINDINGS: VENTRICLES: Normal size and contour. CEREBRUM: No masses. No hemorrhage. No midline shift. No evidence for acute infarction. Normal gra y-white matter differentiation. Mild patchy periventricular and deep white matter hypodense attenuat ion consistent with mild chronic small vessel ischemic change. CEREBELLUM: No masses. No hemorrhage. No alteration of density. No evidence for acute infarction. EXTRAAXIAL SPACES: No fluid collections. No masses. ORBITS AND GLOBE: No intra- or extraconal masses. Normal contour of globe without masses. CALVARIUM: No fracture. PARANASAL SINUSES: No fluid or mucosal thickening. SOFT TISSUES: No mass or hematoma. OTHER: No other significant finding. IMPRESSION: 1. No acute intracranial hemorrhage, mass, or evidence of acute territorial infarct. 2. Mild chronic small vessel ischemic change. EVIDENCE OF ACUTE STROKE: NO. COMMENT: Negative findings were communicated with the ordering provider per stroke protocol at the t luna of dictation. Quality ID # [id number]: Final reports with documentation of one or more dose reduction techniques (e.g., Au tomated exposure control, adjustment of the mA and/or kV according to patient size, use of iterative reconstruction technique) TECHNICAL DOCUMENTATION: JOB ID: [id number] 2010 [email or web address]- All Rights Reserved Reading location - IP/workstation name: [email or web address]
[2020-06-29 17:02] LABS: PARTIAL THROMBOPLASTIN TIME 32.2 SEC (23.5-35.8)
[2020-06-29 17:21] LABS: PROTHROMBIN TIME 12.4 SEC (11.4-15.4)
[2020-06-29 18:33] LABS: ABSOLUTE EOSINOPHILS # (AUTO) 0.2 10^3/uL (0.0-0.6); ABSOLUTE LYMPHOCYTES (AUTO) 1.2 10^3/uL (0.5-4.7); ABSOLUTE MONOCYTES (AUTO) 0.3 10^3/uL (0.1-1.4); ABSOLUTE NEUT (AUTO) 2.4 10^3/uL (1.7-8.2); BASOPHILS % (AUTO) 0.4 % (0-2); EOSINOPHILS % (AUTO) 4.6 % (0-6); HEMATOCRIT 37.4 % (37.9-51.0); HEMOGLOBIN 12.5 g/dL (13.5-17.0); LYMPHOCYTES % (AUTO) 29.5 % (13-45); MEAN CORPUSCULAR HEMOGLOBIN 32.7 pg (27.0-33.4); MEAN CORPUSCULAR HGB CONC 33.4 g/dL (32.0-36.0); MEAN CORPUSCULAR VOLUME 98 fl (80-97); MONOCYTES % (AUTO) 7.3 % (3-13); PLATELET COUNT 121 10^3/uL (150-450); RED BLOOD COUNT 3.83 10^6/uL (4.35-5.55); RED CELL DISTRIBUTION WIDTH 14.9 % (11.5-14.0); SEGMENTED NEUTROPHILS % (AUTO) 58.2 % (42-78); TOTAL CELLS COUNTED % (AUTO) 100 %
[2020-06-29 18:45] LABS: ALBUMIN 3.8 g/dL (3.5-5.0); ALKALINE PHOSPHATASE 65 U/L (38-126); ANION GAP 7 (5-19); ASPARTATE AMINO TRANSFERASE 21 U/L (17-59); BILIRUBIN,DIRECT 0.2 mg/dL (0.0-0.4); BILIRUBIN,TOTAL 0.4 mg/dL (0.2-1.3); BLOOD UREA NITROGEN 20 mg/dL (7-20); CALCIUM 9.2 mg/dL (8.4-10.2); CARBON DIOXIDE 31 mmol/L (22-30); CHLORIDE 98 mmol/L (98-107); GLUCOSE 278 mg/dL (75-110); POTASSIUM 4.3 mmol/L (3.6-5.0); TOTAL PROTEIN 6.7 g/dL (6.3-8.2)
--- NOTE | 2020-06-30 | ER Document Report ---
ED NIH Stroke Scale - NIH Stroke Scale When completed:: Before Alteplase *: 1. NIH scale should be completed with appropriate accompanying assessment tools. *: 2. The NIH should reflect what the patient is capable of doing and should not be coached by the clinician. 1a. Level of Consciousness: 0=Alert;keenly responsive -: 1=Drowsy -: 2=Obtunded -: 3=Coma/unresponsive or reflex to noxious stimuli. 1a. Responses: 0 1b. Orientation Questions: a. What month is it? -: b. How old are you? -: 0=Answers both questions correctly. -: 1=Answers one question correctly or patient is intubated or has orotracheal trauma. -: 2=Answers neither question correctly. 1b. Responses: 0 1c. Response to commands: a. Open and close eyes? -: b. Supply Service Worker and release hand? -: Credit is given despite weakness. Demonstration of task is permitted. Substitute command if hands cannot be used. -: 0=Performs both tasks correctly -: 1=Performs one task correctly -: 2=Performs neither task correctly 1c. Responses: 0 2. Gaze: Establish eye contact and instruct patient to "Follow my finger" -: 0=Normal -: 1=Partial gaze palsy. Gaze is abnormal in one or both eyes, but where forced deviation or total gaze paresis is not present. -: 2=Forced deviation or total gaze paresis. 2. Responses: 0 3. Visual [place]te[place]: Sees fingers in all four quadrants. -: 0=No visual loss. -: 1=Partial hemianopsia. -: 2=Complete hemianopsia. -: 3=Bilateral hemianopsia (including Cortical blindness) 3. Responses: 0 4. Facial Movement: Instruct patient to: -: a. Show me your teeth -: b. Raise your eyebrows -: c. Close your eyes -: d. Smile -: 0=Normal symmetrical movement -: 1=Minor paralysis (flattened nasolabial fold, asymmetry on smiling). -: 2=Partial paralysis (total or near total paralysis of lower face). -: 3=Complete paralysis of upper and lower face 4. Responses: 0 5. Motor functions (left arm): Alternate sides and extend each arm with palms down (90 degrees if sitting or 45 degrees for supine). -: 0=No drift;limb holds for full 10 seconds. -: 1=Drift; limb holds but drifts down before full 10 seconds, but does not hit bed. -: 2=Some effort against gravity; limb cannot get to or maintain position. -: 3=No effort against gravity; limb falls. -: 4=No movement. -: UN=Amputation, joint fusion, explain in comments. 5. Responses (left arm): 0 5. Motor Functions (right arm): Alternate sides and extend each arm with palms down (90 degrees if sitting or 45 degrees for supine). -: 0=No drift;limb holds for full 10 seconds. -: 1=Drift; limb holds but drifts down before full 10 seconds, but does not hit bed. -: 2=Some effort against gravity; limb cannot get to or maintain position. -: 3=No effort against gravity; limb falls. -: 4=No movement. -: UN=Amputation, joint fusion, explain in comments. 5. Responses (right arm): 1 6. Motor Functions (left leg): With patient lying supine, alternate sides and extend each leg (30 degrees always while supine). -: 0=No drift, leg holds position for full 5 seconds -: 1=Drift; leg falls before full 5 seconds but does not hit bed. -: 2=Some effort against gravity, leg falls to bed but some effort against gravity. -: 3=No effort against gravity, leg falls to bed immediately. -: 4=No movement. -: UN=Amputation, joint fusion; explain in comments. 6. Responses (left leg): 0 6. Motor Functions (right leg): With patient lying supine, alternate sides and extend each leg (30 degrees always while supine). -: 0=No drift, leg holds position for full 5 seconds -: 1=Drift; leg falls before full 5 seconds but does not hit bed. -: 2=Some effort against gravity, leg falls to bed but some effort against gravity. -: 3=No effort against gravity, leg falls to bed immediately. -: 4=No movement. -: UN=Amputation, joint fusion; explain in comments. 6. Responses (right leg): 1 7. Limb Ataxia: With eyes open instruct patient to: -: a. "Touch your finger to your nose". -: b. "Touch your heel to your pickard" -: 0=Absent -: 1=Present in one limb. -: 2=Present in two limbs. -: UN=Amputation or joint fusion; explain in comments. 7. Responses: 0 8. Sensory: Test sensation using pinprick or noxious stimuli. Test as many body parts as possible. -: 0=Normal;no sensory loss -: 1=Mile to moderate sensory loss (patient feels pin prick but is less sharp on affected side). -: 2=Severe or total sensory loss. 8. Responses: 2 9. Best Language: Instruct patient to: -: a. "Describe what you see in this picture." -: b. "Name the items in this picture." -: c. "Read these sentences." -: 0=No aphasia, normal -: 1=Mild to moderate aphasia. -: 2=Severe aphasia -: 3=Mute, global aphasia, no usable speech or auditory comprehension. 9. Responses: 0 10. Articulation, Dysarthia: Instruct patient to: -: "Read these words" or "Repeat these words" -: 0=Normal -: 1=Mild to moderate; patient may slur some words but can be understood without difficulty. -: 2=Severe; patients speech so slurred as to be unintelligible in the absence of dysphasia. -: UN=Intubated or other physical barrier, explain in comments. 10. Responses: 0 11. Extinction or inattention: 0=No abnormality -: 1= Visual, tactile, auditory, spatial, or personal inattention or extinction to bilateral simulation in one or the sensory modalities. -: 2=Profound linus-inattention or linus-inattention to more than one modality; does not recognize own hand. 11. Responses: 0 Total Score: 4
--- NOTE | 2020-06-30 00:01 | ER Document Report ---
ED General - General Chief Complaint: Numbness Stated Complaint: NUMBNESS/RIGHT SIDE OF BODY Time Seen by Provider: 06/29/20 16:04 Mode of Arrival: Ambulatory TRAVEL OUTSIDE OF THE [place] IN LAST 30 DAYS: No - HPI Context: Time:2349 Chief Complaint: [Right-sided numbness and tingling] [This is a 54-year-old male who presents to the emergency department complaining of diffuse right-sided numbness and tingling that started at approximately 0 900 this morning. Patient states he has a history of hypertension and diabetes but he denies any prior history of stroke. Patient denies motor weakness, slurred speech, visual changes, headache, chest pain, shortness of breath. Patient denies history of COVID-19 infection, known exposure to Covid positive persons or persons under suspicion for COVID-19. Patient denies loss of sense of taste or sense of smell. Patient denies history of having similar symptoms in the past. ] History obtained from [patient] Symptoms began:[0 900] Onset: [Sudden] Timing: Sudden] Quality: [Numbness and tingling] Intensity: [Moderate] Location: [Entire right side of body] Radiation: [Denies] [The pain does not migrate to a new location.] Aggravating factors: [none] Relieving factors: [none] [Denies] SOB [Denies] nausea [Denies] vomiting [Denies] sweats [Denies] fever [Denies] cough [Denies] calf or leg swelling or pain - Related Data Allergies/Adverse Reactions: cyclobenzaprine [From Flexeril] Allergy (Verified 01/12/18 12:23) ibuprofen [Ibuprofen] Allergy (Verified 01/12/18 11:59) lisinopril Allergy (Verified 01/12/18 12:23) venlafaxine Allergy (Verified 01/12/18 12:23) Vomiting Past Medical History - General Information source: Patient - Social History Smoking Status: Never Smoker Frequency of alcohol use: None Drug Abuse: None Family History: Reviewed & Not Pertinent, Arthritis, DM, Hyperlipidemia, Hypertension, Malignancy - Past Medical History Cardiac Medical History: Reports: Hx Hypercholesterolemia, Hx Hypertension Pulmonary Medical History: Reports: Hx Asthma, Hx COPD Neurological Medical History: Reports: Hx Migraine Endocrine Medical History: Reports: Hx Diabetes Mellitus Type 2 Renal/ Medical History: Denies: Hx Peritoneal Dialysis Musculoskeletal Medical History: Reports Hx Arthritis, Reports Hx Muscu loskeletal Deformity, Reports Hx Musculoskeletal Trauma Psychiatric Medical History: Reports: Hx Attention Deficit Hyperactivity Disorder, Hx Depression - PTSD, Hx Obsessive Compulsive Disorder, Hx Post Traumatic Stress Disorder Traumatic Medical History: Reports: Hx Traumatic Brain Injury Past Surgical History: Reports: Hx Abdominal Surgery - Lipomas removed, Hx Oral Surgery, Hx Orthopedic Surgery - l4-l5, l5-s1; stimulator - Immunizations Immunizations up to date: Yes Hx Diphtheria, Pertussis, Tetanus Vaccination: Yes Review of Systems - Review of Systems Notes: Review of systems as below unless otherwise stated in HPI. CONSTITUTIONAL [No] fever, [No] chills. EYES [No] eye pain. ENT [No] URI symptoms, [No] sore throat, [No] ear pain. CARDIOVASCULAR [No] chest pain, [No] palpitations, [No] edema. RESPIRATORY [No] Cough, [No] SOB, [No] wheezing. GASTROINTESTINAL [No] abdominal pain, [No] nausea, [No] Diarrhea, [No] Vomiting, [No] constipation, [No] melena, [No] rectal bleeding. GENITOURINARY [No] dysuria, [No] urinary frequency, [No] hematuria, [No] urinary urgency MUSCULOSKELETAL [No] Back pain. SKIN [No] Rash. NEUROLOGIC [No] Headache, [No] recent seizures, [No] paralysis,[positive] parathesias. ENDOCRINE [No] polyuria. HEMO/LYMPATIC [No] easy brusing PSYCHIATRIC [No] depression. Physical Exam - Vital signs Vitals: Temp Pulse Resp BP Pulse Ox 97.8 F 89 20 127/79 H 99 06/29/20 16:07 06/29/20 16:07 06/29/20 16:07 06/29/20 16:07 06/29/20 16:07 - Notes Notes: CONSTITUTIONAL [Vital signs reviewed, Patient appears to be in no acute distress, Alert and oriented X 3, Normal stature.] HEAD [Atraumatic, Normocephalic.] EYES [Eyes are normal to inspection, No discharge from eyes, Extraocular muscles intact, Sclera are normal, Conjunctiva are normal.] ENT [External ears normal to inspection, Nose examination normal, Mouth normal to inspection.] NECK [Normal ROM, No jugular venous distention, No meningeal signs, ] RESPIRATORY CHEST [Chest is nontender, Breath sounds normal, No respiratory distress.] CARDIOVASCULAR [RRR, No murmurs, Normal S1 S2, No rub, No gallop.] ABDOMEN [Abdomen is nontender, No pulsatile masses, No other masses, Bowel sounds normal, No distension, No peritoneal signs, No hernias.] BACK [There is no CVA Tenderness, There is no tenderness to palpation, Normal inspection.] UPPER EXTREMITY [Inspection normal, No cyanosis, No clubbing, No edema, LOWER EXTREMITY [Inspection normal, No cyanosis, No clubbing, No edema, No calf tenderness, NEURO [No focal motor deficits, patient complains of sensory deficits on palpation of right face right upper extremities right hand right lower extremities, speech normal.] SKIN [Skin is warm, Skin is dry, Skin is normal color.] PSYCHIATRIC [Normal affect. ] Course - Re-evaluation Re-evalutation: 06/30/20 00:18 Results of ED MSE discussed with patient. Recommendation for admission discussed with patient. Patient was agreeable to this. - Vital Signs Vital signs: Temp Pulse Resp BP Pulse Ox 98.1 F 89 17 167/62 H 97 06/29/20 23:31 06/29/20 23:40 06/29/20 23:40 06/29/20 23:40 06/29/20 23:40 - Laboratory Results Result Diagrams: 06/29/20 16:35 06/29/20 16:35 Laboratory Results Interpreted: 06/29/20 06/29/20 16:35 16:35 RBC 3.83 L Hgb 12.5 L Hct 37.4 L MCV 98 H RDW 14.9 H Plt Count 121 L Sodium 135.6 L Carbon Dioxide 31 H Glucose 278 H Critical Laboratory Results Reviewed: No Critical Results - Patient's glucose is elevated but is less than 300 Attending or Supervising Physician who Reviewed Labs: ISABELLA BELLO IV - Radiology Results Critical Radiology Results Reviewed: No Critical Results Attending or Supervising Physician who Reviewed Radiology: ISABELLA BELLO IV - EKG Interpretation by Me Additional EKG results interpreted by me: 06/30/20 00:13 EKG obtained on 06/29/2020 at 1634 hrs. was interpreted by this MD. Findings: Normal sinus rhythm, rate 87, normal axis, P waves preceding QRS complexes, MO interval appears to be within normal limits, QRS complex appears narrow, QTC is 438, there are no obvious patterns of ST segment elevation, depression or reciprocal changes seen to suggest acute myocardial ischemia or infarction. When compared with prior EKG from 08/19/2019 other than some baseline artifact the cruise morphology of the 2 EKGs appears unchanged. Impression: Normal sinus rhythm with nonspecific ST segments. - Consults Dr. Srivastava, Hospitalist Time consulted: 23:03 Reason for consultation: 06/30/20 00:20 new onset right sided sensory defiicit, outside window for lytic therapy Consulted provider: will come to ER Critical Care Note - Critical Care Note Total time excluding time spent on procedures (mins): 30 - management of stroke alert patient Discharge - Discharge Clinical Impression: Right-sided sensory deficit present Condition: Stable Disposition: ADMITTED OBSERVATION Admitting Provider: [facility] Unit Admitted: [facility]
--- NOTE | 2020-06-30 00:02 | ER Document Report ---
ED Alteplase Inc/Exc Criteria - Date/Time patient last known well: Date/Time: 06/29/2020 at 0900 hrs. - Date/Time patient arrived in ED: _: 06/29/2020 at 1552 - Inclusion Criteria: 1: Patient presented to ED within 4.5 hours of acute ischemic stroke symptom onset? -: No 2: Did baseline CT exclude intracranial hemorrhage and/or other risk factors? -: Yes 3: Is the age of the patient 18 years of age or greater? -: Yes : If any of the above questions are answered "NO" then stop, patient is not a candidate for Alteplase, : If all of the above questions are answered "YES" then continue with Exclusion Criteria. - Exclusion Criteria: 1: Is there evidence of intracranial hemorrhage on baseline CT? 2: Is there suspicion of subarachnoid hemorrhage (even if CT negative)? 3: Is there a history of serious head trauma, recent previous stroke or RI within 3 months? 4: Does the patient have a clinical presentation consistent with RI or post-RI p ericarditis? 5: Is there history of intracranial hemorrhage? 6: On repeated measurement is Systolic BP greater than 185mmHg or Diastolic BP greater that 110 mmHg and is aggressive treatment needed to reduce blood pressure to these limits (e.g. constant infusion of an anti-hypertensive)? 7: Did the patient awake with stroke symptoms? 8: Has the patient had a lumbar puncture or an arterial puncture at a non- compressile site within 7 days? 9: With in the last 14 days did the patient have surgery or major trauma? 10: Is the patient or less than 2 weeks? 11: Was there any active bleeding or acute trauma? 12: Does the patient have intracranial neoplasm, arteriovenous malformation or aneurysm? 13: Does the patient have abnormal glucose (less than 50 or greater than 400mg/dl)? Record glucose in Comment. 14: Patient has rapidly improving symptoms at the time Alteplase is to be Administered. 15: Does the patient have any risks for bleeding, including but not limited to: a.: Current use of Coumadin with PT greater than 15 seconds or INR greater than 1.7. b.: Current use of Pradaxa (Dabigatran). c.: Heparin administereed within the past 48 hours and PTT elevated. d.: Platelet count less than 100,000/mm. e.: Major surgery or serious trauma within 14 days. f.: Gastrointestinal or gynecological urinary bleeding within 14 days. g.: Myocardial Infarction (RI) within 3 months. : If the answer to any of the above questions is "YES" then stop, the patient is not a candidate for Alteplase. : If the answer to all of the above questions is "NO" then the patient may be eligible for the Administration of Alteplase. : If the patient is noted to have seizure activity at onset of Stroke symptoms; Consult Neurologist for further evaluation. - The patient is: -: Included and is eligible to receive Alteplase. *Initiate bed placement at higher level of care* Reviewed risks & benefits of thrombolytic therapy: I have reviewed the risks and benefits of thrombolytic therapy with the patient and/or his/her family. -: Excluded and not eligible to receive Alteplase for the above exclusions. --: Yes - Presented greater than 4.5 hours so they can give your -: Excluded and not eligible to receive Alteplase for other reasons (specify in comments): - Diagnosis of TIA: -: Patient presented with transient symptoms that are now resolved and no other neurologic findings are currently present. List symptoms in comments. -: Patient is NOT a candidate for tPA. -: ____(put name in comment) has been consulted for admission and continued evaluation of risk factor assessment.
[2020-06-30] MEDS ORDERED: DEXTROSE 50%-WATER 25 GM/50 ML DISP.SYRIN IV PRN ×2 (01:49)
[2020-06-30] MEDS ORDERED: DEXTROSE 40% GEL 15 GM TUBE PO PRN ×2 (01:49)
[2020-06-30] MEDS ORDERED: GLUCAGON,HUMAN RECOMB 1 MG INJ IM PRN (01:49)
--- NOTE | 2020-06-30 01:49 | PDOC H&P ---
History of Present Illness Admission Date/PCP: [facility] Patient complains of: Right sided numbness and tingling History of Present Illness: JEANNIE BARONE is a 54 year old male Patient has hypertension and type 2 diabetes. He never had a stroke or acute cardiovascular event in his life. Around 9:00 in the morning he started experiencing fairly abruptly right-sided tingling and numbness, complete loss of sensation. He was able to walk and continue to perform motor tasks but he said his sensation was completely gone on the right side. The patient is left- handed. He did not have any headache, no dizziness, no chest pain no shortness of breath. Later he decided to come to the emergency department. Initial neurological examination did not detect any other abnormality except loss of sensation on the right side. He had CT scan of the head which was unremarkable. He was not a candidate for thrombolytic treatment because of time window. When I arrived to see the patient he appeared to be comfortable. He said the numbness or, full loss of sensation is the same as before, did not improve. He denied having any other complaint. His gait is somewhat unsteady but it is chronic secondary to neuropathy. 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 He is a . Past Medical History Cardiac Medical History: Reports: Hyperlipidema, Hypertension Pulmonary Medical History: Reports: Asthma, Chronic Obstructive Pulmonary Disease (COPD), Sleep Apnea - He is intolerant to CPAP mask Neurological Medical History: Reports: Migraine Endocrine Medical History: Reports: Diabetes Mellitus Type 2 - He quite often forgets to take his insulin. Renal/ Medical History: Reports: None Malignancy Medical History: Reports: None GI Medical History: Reports: None Musculoskeltal Medical History: Reports: Arthritis, Other - Back surgery. History of MRI safe neurostimulator placement. Musculoskeletal History Note: He suffered multiple injuries during combat. Psychiatric Medical History: Reports: Attention Deficit Hyperactivity Disorder, Depression - PTSD, Post Traumatic Stress Disorder Traumatic Medical History: Reports: Traumatic Brain Injury Hematology: Reports: Anemia Infectious Medical History: Reports: None Past Surgical History Past Surgical History: Reports: Orthopedic Surgery - l4-l5, l5-s1; stimulator, surgeries on his lower extremities Social History Lives with: Family Smoking Status: Never Smoker Family History Family History: Reviewed & Not Pertinent, Arthritis, DM, Hyperlipidemia, Hypertension, Malignancy Parental Family History Reviewed: Yes Children Family History Reviewed: Yes Sibling(s) Family History Reviewed.: Yes Medication/Allergy Home Medications: Imitrex 1 tab PO DAILY PRN 06/20/11 Multivitamin [Multi-Day Vitamins] 1 each PO DAILY 06/20/11 Amlodipine Besylate 1 tab PO DAILY 09/13/15 Celecoxib [Celebrex 100 mg Capsule] 1 tab PO DAILY 09/13/15 Cyanocobalamin (Vitamin B-12) [Vitamin B-12] 1 tab PO DAILY 09/13/15 Duloxetine HCl [Cymbalta] 60 mg PO BID 09/13/15 Gabapentin 1 tab PO BID 09/13/15 Hydrocodone/Acetaminophen [[place] 5-325 mg Tablet] 1 tab PO Q6HP PRN #14 tablet 01/19/16 Diazepam [Valium 5 mg Tablet] 1 - 2 tab PO TID #20 tablet 03/28/17 Meclizine HCl [Antivert 25 mg Tablet] 25 mg PO TID PRN #10 tablet 08/19/19 Allergies/Adverse Reactions: cyclobenzaprine [From Flexeril] Allergy (Verified 01/12/18 12:23) ibuprofen [Ibuprofen] Allergy (Verified 01/12/18 11:59) lisinopril Allergy (Verified 01/12/18 12:23) venlafaxine Allergy (Verified 01/12/18 12:23) Vomiting Review of Systems Constitutional: ABSENT: chills, fever(s), headache(s), weight gain, weight loss Eyes: ABSENT: visual disturbances Ears: ABSENT: hearing changes Nose, Mouth, and Throat: ABSENT: headache(s), vertigo Cardiovascular: ABSENT: chest pain, dyspnea on exertion, edema, orthropnea, palpitations Respiratory: ABSENT: cough, hemoptysis Gastrointestinal: ABSENT: abdominal pain, constipation, diarrhea, hematemesis, hematochezia, nausea, vomiting Genitourinary: ABSENT: dysuria, hematuria Musculoskeletal: PRESENT: back pain - Only chronic back pain, chronic leg pain, neuropathy. Neurological: PRESENT: other - Chronic neuropathic pain Endocrine: ABSENT: cold intolerance, heat intolerance, polydipsia, polyuria Physical Exam Vital Signs: Temp Pulse Resp BP Pulse Ox 98.1 F 89 17 167/62 H 97 06/29/20 23:31 06/29/20 23:40 06/29/20 23:40 06/29/20 23:40 06/29/20 23:40 Intake & Output 06/28/20 06/29/20 06/30/20 06:59 06:59 06:59 Weight 151.3 kg General appearance: PRESENT: no acute distress, morbidly obese - BMI 49.3 Head exam: PRESENT: atraumatic Eye exam: PRESENT: conjunctiva pink, EOMI, PERRLA. ABSENT: scleral icterus Ear exam: PRESENT: normal external ear exam Neck exam: ABSENT: carotid bruit, JVD, lymphadenopathy, thyromegaly Respiratory exam: PRESENT: clear to auscultation teresa. ABSENT: rales, rhonchi, wheezes Cardiovascular exam: PRESENT: RRR. ABSENT: diastolic murmur, rubs, systolic murmur Pulses: PRESENT: normal dorsalis pedis pul Vascular exam: PRESENT: normal capillary refill GI/Abdominal exam: PRESENT: normal bowel sounds, soft, other - very obese abdominal wall. ABSENT: distended, guarding, mass, organolmegaly, rebound, tenderness Musculoskeletal exam: PRESENT: ambulatory Neurological exam: PRESENT: alert, oriented to person, oriented to place, oriented to time, oriented to situation, abnormal gait - Chronic gait abnormality, gait has not changed., motor sensory deficit - Complete anesthesia on the right side of the body. No motor deficit. Normal speech. Normal swallowing.. ABSENT: ataxia Psychiatric exam: PRESENT: normal mood Skin exam: PRESENT: dry, intact, warm. ABSENT: cyanosis, rash Results Laboratory Results: 06/29/20 16:35 06/29/20 16:35 06/29/20 06/29/20 16:35 16:35 WBC 4.0 RBC 3.83 L Hgb 12.5 L Hct 37.4 L MCV 98 H MCH 32.7 MCHC 33.4 RDW 14.9 H Plt Count 121 L Seg Neutrophils % 58.2 Sodium 135.6 L Potassium 4.3 Chloride 98 Carbon Dioxide 31 H Anion Gap 7 BUN 20 Creatinine 1.09 Est GFR ( Amer) > 60 Glucose 278 H Calcium 9.2 Total Bilirubin 0.4 AST 21 Alkaline Phosphatase 65 Total Protein 6.7 Albumin 3.8 06/29/20 16:35 Troponin I < 0.012 EKG Comments: No sinus rhythm, normal repolarization. Low voltage in chest leads. Impressions: Chest X-Ray 06/29/20 16:12 IMPRESSION: No acute cardiopulmonary process. Head CT 06/29/20 16:12 IMPRESSION: 1. No acute intracranial hemorrhage, mass, or evidence of acute territorial infarct. 2. Mild chronic small vessel ischemic change. EVIDENCE OF ACUTE STROKE: NO. Assessment and Plan - Diagnosis (1) Stroke-like symptoms Is this a current diagnosis for this admission?: Yes Plan: The patient has persistent right sided anesthesia since 9 AM. It has not changed. No motor deficit. This can be a stroke, I cannot rule out the possibility of conversion reaction. He is going to have an MRI of the brain. He is going to have a CT angiogram of the head and neck. He is going to an echocardiogram. He is going to be on compliance monitor. Fasting lipid panel and hemoglobin A1c. If indicated he is going to be started on daily aspirin. We will try to adjust his diabetes medication if needed. Physical and occupational therapy evaluation. (2) Hypertension Qualifiers: Hypertension type: essential hypertension Qualified Code(s): I10 - Essential (primary) hypertension Is this a current diagnosis for this admission?: Yes Plan: Continue amlodipine. 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 He admits forgetting taking his insulin quite often. To avoid any hypoglycemia I am not going to order any regularly scheduled insulin at this moment. I will start with reduced dose of long-acting insulin in the morning. Monitor blood glucose, correction dose insulin. Hemoglobin A 1c. (4) Neuropathy Is this a current diagnosis for this admission?: Yes Plan: He has chronic neuropathic. He is taking multiple medications but he cannot tell the dose and he is not absolutely sure about the names as well. In the morning these medications will be resumed. (5) MAXIMO (obstructive sleep apnea) Is this a current diagnosis for this admission?: Yes Plan: We will going to monitor his oxygen saturation. He tried CPAP in the past but he is intolerant to it. - Plan Summary Summary: Patient was placed in observation to intermediate care unit because of new onset right-sided anesthesia. No other neurological deficit. Etiology unclear, stroke cannot be excluded. Stroke work-up was initiated. The patient has neuropathy, type 2 diabetes, hypertension. I tried to review his medications but he is unsure about names and dosages. Full medication reconciliation is going to be completed in the morning once information is available. - Time Time Spent with patient: 35 or more minutes Medications reviewed and adjusted accordingly: Yes Anticipated Discharge Disposition: Home, Self Care Anticipated Discharge Timeframe: within 24 hours
--- NOTE | 2020-06-30 03:36 | RADIOLOGY REPORT (SQ) ---
CLINICAL HISTORY: stroke like symptoms COMPARISON: None. 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 MIP reconstructions were generated. Stenoses are calculated by NASCET criteria. FINDINGS: The visualized aortic arch and origins of the great vessels unremarkable. The common carotid arteries are patent and symmetric bilaterally. No hemodynamically significant stenosis is observed at the common carotid bifurcations or origins of the internal carotid arteries bilaterally. Vertebral arteries are unremarkable without evidence of pseudoaneurysm, hemodynamically significant stenosis, or dissection. Intracranially the cavernous segments of the internal carotid arteries are patent and symmetric bilaterally. Vertebral basilar system within normal limits for age. No aneurysm identified within the [place]. Anterior, middle, and posterior cerebral circulations patent and symmetric bilaterally. Dural sinuses are well opacified and without filling defect. IMPRESSION: Unremarkable CT angiogram of the neck for age without dissection or hemodynamically significant stenosis. Unremarkable CTA of the brain without evidence of hemodynamically significant stenosis, aneurysm or AVM. CAROTID STENOSIS REFERENCE USING NASCET CRITERIA: % ICA stenosis = (1 - narrowest ICA diameter/diameter of distal cervical ICA) x 100. Mild - <50% stenosis. Moderate - 50-69% stenosis. Severe - 70-94% stenosis. Near occlusion - 95-99% stenosis. Occluded - 100% stenosis.
--- NOTE | 2020-06-30 03:36 | RADIOLOGY REPORT (SQ) ---
CLINICAL HISTORY: stroke like symptoms COMPARISON: None. 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 MIP reconstructions were generated. Stenoses are calculated by NASCET criteria. FINDINGS: The visualized aortic arch and origins of the great vessels unremarkable. The common carotid arteries are patent and symmetric bilaterally. No hemodynamically significant stenosis is observed at the common carotid bifurcations or origins of the internal carotid arteries bilaterally. Vertebral arteries are unremarkable without evidence of pseudoaneurysm, hemodynamically significant stenosis, or dissection. Intracranially the cavernous segments of the internal carotid arteries are patent and symmetric bilaterally. Vertebral basilar system within normal limits for age. No aneurysm identified within the [place]. Anterior, middle, and posterior cerebral circulations patent and symmetric bilaterally. Dural sinuses are well opacified and without filling defect. IMPRESSION: Unremarkable CT angiogram of the neck for age without dissection or hemodynamically significant stenosis. Unremarkable CTA of the brain without evidence of hemodynamically significant stenosis, aneurysm or AVM. CAROTID STENOSIS REFERENCE USING NASCET CRITERIA: % ICA stenosis = (1 - narrowest ICA diameter/diameter of distal cervical ICA) x 100. Mild - <50% stenosis. Moderate - 50-69% stenosis. Severe - 70-94% stenosis. Near occlusion - 95-99% stenosis. Occluded - 100% stenosis.
[2020-06-30 06:57] LABS: ABSOLUTE EOSINOPHILS # (AUTO) 0.2 10^3/uL (0.0-0.6); ABSOLUTE LYMPHOCYTES (AUTO) 1.4 10^3/uL (0.5-4.7); ABSOLUTE MONOCYTES (AUTO) 0.4 10^3/uL (0.1-1.4); ABSOLUTE NEUT (AUTO) 3.5 10^3/uL (1.7-8.2); BASOPHILS % (AUTO) 0.5 % (0-2); EOSINOPHILS % (AUTO) 3.7 % (0-6); HEMATOCRIT 35.2 % (37.9-51.0); HEMOGLOBIN 11.8 g/dL (13.5-17.0); LYMPHOCYTES % (AUTO) 25.9 % (13-45); MEAN CORPUSCULAR HEMOGLOBIN 32.8 pg (27.0-33.4); MEAN CORPUSCULAR HGB CONC 33.4 g/dL (32.0-36.0); MEAN CORPUSCULAR VOLUME 98 fl (80-97); MONOCYTES % (AUTO) 7.2 % (3-13); PLATELET COUNT 108 10^3/uL (150-450); RED BLOOD COUNT 3.59 10^6/uL (4.35-5.55); RED CELL DISTRIBUTION WIDTH 15.5 % (11.5-14.0); SEGMENTED NEUTROPHILS % (AUTO) 62.7 % (42-78); TOTAL CELLS COUNTED % (AUTO) 100 %; WHITE BLOOD COUNT 5.5 10^3/uL (4.0-10.5)
[2020-06-30 07:19] LABS: ANION GAP 11 (5-19); BLOOD UREA NITROGEN 27 mg/dL (7-20); CALCIUM 9.1 mg/dL (8.4-10.2); CARBON DIOXIDE 25 mmol/L (22-30); CHLORIDE 100 mmol/L (98-107); CHOLESTEROL 144.08 mg/dL (0-200); GLUCOSE 287 mg/dL (75-110); POTASSIUM 4.7 mmol/L (3.6-5.0)
[2020-06-30 07:29] LABS: DIRECT LDL 124 mg/dL (<100); TRIGLYCERIDES 619 mg/dL (<150)
[2020-06-30] MEDS: INSULIN LISPRO 100 UNIT/ML 3 ML VIAL SUBCUT SCH ×4 (09:00→22:29)
[2020-06-30] MEDS ORDERED: INSULIN GLARGINE,HUM.REC.ANLOG 1,000 UNIT/10 ML VIAL SUBCUT SCH (10:00)
[2020-06-30] MEDS ORDERED: INSULIN GLARGINE,HUM.REC.ANLOG 1,000 UNIT/10 ML VIAL (PYX) SUBCUT SCH (10:30)
[2020-06-30] MEDS: AMLODIPINE BESYLATE 10 MG TABLET PO SCH (10:44)
[2020-06-30] MEDS: ENOXAPARIN SODIUM INJ 40 MG/0.4 ML DISP.SYRIN SUBCUT SCH (10:44)
[2020-06-30] MEDS ORDERED: INSULIN GLARGINE,HUM.REC.ANLOG 1,000 UNIT/10 ML VIAL (PYX) SUBCUT ONE (11:15)
--- NOTE | 2020-06-30 14:56 | EKG REPORT ---
SEVERITY:- NORMAL ECG - SINUS RHYTHM : Confirmed by: Juarez Samayoa 30-Jun-2020 14:55:44
--- NOTE | 2020-06-30 16:10 | RADIOLOGY REPORT (SQ) ---
EXAM DESCRIPTION: MRI HEAD WITHOUT IMAGES COMPLETED DATE/TIME: 06/30/2020 1:39 pm REASON FOR STUDY: right sided anesthesia. Right-sided tingling and numbness, weakness, diabetes, hy pertension. COMPARISON: CT head 06/29/2020. CT angiography head and neck 06/30/2020. TECHNIQUE: Multiplanar imaging includes non-contrasted T1, T2, FLAIR, and diffusion with ADC map seq uences. Images stored on PACS. LIMITATIONS: None. FINDINGS: ANATOMY: No anomalies. Normal vascular flow voids. Pituitary fossa normal. CSF SPACES: Normal in size and contour. No hemorrhage. CEREBRUM: Sulci and gyri normal in size and contour. Normal white matter signal on FLAIR imaging. No evidence of hemorrhage, mass, or extraaxial fluid collection. POSTERIOR FOSSA: No signal alteration. No hemorrhage. No edema, masses or mass effect. Internal nikolas tory canals, cerebello-pontine angles, mastoids normal. DIFFUSION IMAGING: There is focal restricted diffusion with associated T2 and T2 FLAIR signal in the left thalamus consistent with acute to subacute infarct. ORBITS: No masses. Globes normal. PARANASAL SINUSES: No fluid levels. Mucosa normal. OTHER: No other significant finding. IMPRESSION: Focal restricted diffusion in the left thalamus consistent with acute to subacute lacuna r infarct. No acute territorial infarct, mass, mass effect or evidence of intracranial hemorrhage. EVIDENCE OF ACUTE STROKE: YES. Left thalamic lacunar infarct COMMENT: Findings were discussed with Dr. Pratt on 06/30/2020 at 1600 hours Eastern. TECHNICAL DOCUMENTATION: JOB ID: [id number] [employer]- All Rights Reserved Reading location - IP/workstation name: [email or web address]
--- NOTE | 2020-06-30 16:25 | Progress Note ---
Provider Note Provider Note: MRI shows a focal restricted diffusion in the left thalamus consistent with an acute to subacute lacunar infarct. Patient is still having some numbness and tingling in the right upper extremity. Echocardiogram is currently pending. MRA shows no significant stenosis. I have started patient on Plavix as he is allergic to ibuprofen, nature of specific allergy unknown. I have also placed him on atorvastatin. Patient is currently on amlodipine for his blood pressure which is currently relatively well controlled his triglyceride is noted to be off the chart at 619.
[2020-06-30] MEDS: CLOPIDOGREL BISULFATE 75 MG TABLET PO SCH (17:44)
[2020-06-30] MEDS ORDERED: ATORVASTATIN CALCIUM 40 MG TABLET PO SCH (22:00)
[2020-07-01 06:17] LABS: ABSOLUTE EOSINOPHILS # (AUTO) 0.2 10^3/uL (0.0-0.6); ABSOLUTE LYMPHOCYTES (AUTO) 1.4 10^3/uL (0.5-4.7); ABSOLUTE MONOCYTES (AUTO) 0.4 10^3/uL (0.1-1.4); ABSOLUTE NEUT (AUTO) 2.7 10^3/uL (1.7-8.2); BASOPHILS % (AUTO) 0.4 % (0-2); EOSINOPHILS % (AUTO) 4.2 % (0-6); HEMATOCRIT 34.7 % (37.9-51.0); HEMOGLOBIN 11.7 g/dL (13.5-17.0); LYMPHOCYTES % (AUTO) 29.8 % (13-45); MEAN CORPUSCULAR HEMOGLOBIN 32.8 pg (27.0-33.4); MEAN CORPUSCULAR HGB CONC 33.7 g/dL (32.0-36.0); MEAN CORPUSCULAR VOLUME 97 fl (80-97); PLATELET COUNT 104 10^3/uL (150-450); RED BLOOD COUNT 3.57 10^6/uL (4.35-5.55); RED CELL DISTRIBUTION WIDTH 15.2 % (11.5-14.0); SEGMENTED NEUTROPHILS % (AUTO) 57.6 % (42-78); TOTAL CELLS COUNTED % (AUTO) 100 %; WHITE BLOOD COUNT 4.7 10^3/uL (4.0-10.5)
[2020-07-01 06:31] LABS: ANION GAP 8 (5-19); BLOOD UREA NITROGEN 28 mg/dL (7-20); CALCIUM 9.4 mg/dL (8.4-10.2); CARBON DIOXIDE 29 mmol/L (22-30); CHLORIDE 99 mmol/L (98-107); GLUCOSE 200 mg/dL (75-110); POTASSIUM 4.6 mmol/L (3.6-5.0)
[2020-07-01] MEDS ORDERED: IVERMECTIN 3 MG TABLET PO ONE (07:55)
[2020-07-01] MEDS: INSULIN LISPRO 100 UNIT/ML 3 ML VIAL SUBCUT SCH ×4 (08:24→21:37)
[2020-07-01] MEDS ORDERED: IVERMECTIN 3 MG TABLET PO SCH (09:00)
[2020-07-01] MEDS ORDERED: CELECOXIB 100 MG CAPSULE PO SCH (10:00)
[2020-07-01] MEDS ORDERED: MULTIVITAMIN PO SCH (10:00)
[2020-07-01] MEDS ORDERED: (PENDING PHARMACY ID) (Cetirizine Hcl [Zyrtec] 10 MG Capsule) PO SCH (10:00)
[2020-07-01] MEDS ORDERED: [UNRECOGNIZED DRUG - OTHER] PO SCH (10:00)
[2020-07-01] MEDS ORDERED: CYANOCOBALAMIN 1000 MCG PO SCH (10:00)
[2020-07-01] MEDS ORDERED: (PENDING PHARMACY ID) (Duloxetine Hcl [Cymbalta] 60 MG Capsule.Dr) PO SCH (10:00)
[2020-07-01] MEDS ORDERED: CHOLECALCIFEROL 75 MCG PO SCH (10:00)
[2020-07-01] MEDS ORDERED: (PENDING PHARMACY ID) (Gabapentin [Neurontin] 600 MG Tablet) PO SCH (10:00)
[2020-07-01] MEDS: CYANOCOBALAMIN (VITAMIN B-12) 1,000 MCG TABLET PO SCH (11:19)
[2020-07-01] MEDS: CHOLECALCIFEROL (D3) 1,000 UNIT (25 MCG) TABLET PO SCH (11:20)
[2020-07-01] MEDS: CETIRIZINE 10 MG TABLET PO SCH (11:21)
[2020-07-01] MEDS: FENOFIBRATE NANOCRYSTALLIZED 145 MG TABLET PO SCH (11:21)
[2020-07-01] MEDS: MULTIVITAMIN TABLET PO SCH (11:21)
[2020-07-01] MEDS: ASCORBIC ACID 500 MG TABLET PO SCH (11:21)
[2020-07-01] MEDS: DULOXETINE HCL 30 MG CAPSULE.DR PO SCH (11:21)
[2020-07-01] MEDS: ENOXAPARIN SODIUM INJ 40 MG/0.4 ML DISP.SYRIN SUBCUT SCH (11:22)
[2020-07-01] MEDS: GABAPENTIN 300 MG CAPSULE PO SCH ×3 (11:22→17:15)
[2020-07-01] MEDS: AMLODIPINE BESYLATE 10 MG TABLET PO SCH (11:22)
[2020-07-01] MEDS: CLOPIDOGREL BISULFATE 75 MG TABLET PO SCH (11:22)
[2020-07-01] MEDS: INSULIN GLARGINE,HUM.REC.ANLOG 1,000 UNIT/10 ML VIAL SUBCUT SCH (11:23)
[2020-07-01] MEDS: FLUTICASONE NASAL SPRAY 50 MCG/SPRY 120 SPRAY/16 GM NASL SCH (11:23)
[2020-07-01] MEDS: CELECOXIB 200 MG CAPSULE PO SCH ×2 (11:24→17:15)
[2020-07-01] MEDS: PYRIDOXINE HCL 50 MG TABLET PO SCH (11:25)
--- NOTE | 2020-07-01 11:46 | PDOC PROGRESS REPORT ---
Subjective Date:: 07/01/20 Subjective:: The patient is a 54-year-old male with a past medical history significant for uncontrolled diabetes mellitus, hypertension, hyperlipidemia, COPD (not home O2 dependent), MAXIMO, and morbid obesity who was admitted 06/30/2020 with acute/subacute left lacunar infarct. Incidentally found to be COVID-19 positive. Patient was seen on morning rounds. He is found resting in, comfortably, on room air. He was noted to be maintaining oxygen saturations in the low to mid 90s, though with frequent/brief desaturation events to 87-89%. Patient reports MAXIMO; admits to CPAP noncompliance at home. He complains of fatigue, generalized malaise, headache, and mild dyspnea at rest. He continues to have right upper extremity numbness, though decreased from previously and with improved strength/coordination. He denies fever, chills, chest pain, palpitations, cough, abdominal pain, nausea vomiting and diarrhea. He has no questions or concerns at this time. No concerns per nursing. Reason For Visit: STROKE LIKE SYMPTOMS Physical Exam Vital Signs: Temp Pulse Resp BP Pulse Ox 97.6 F 78 18 115/65 94 07/01/20 08:02 07/01/20 08:02 07/01/20 08:02 07/01/20 08:02 07/01/20 08:02 Intake & Output 06/30/20 07/01/20 07/02/20 06:59 06:59 06:59 Intake Total 222 980 Output Total 0 Balance 222 980 Weight 150.1 kg 150.1 kg General appearance: PRESENT: no acute distress, cooperative, morbidly obese, well-developed, well-nourished, other - Fatigued; acutely ill-appearing Head exam: PRESENT: atraumatic, normocephalic Eye exam: PRESENT: conjunctiva pink, EOMI, PERRLA. ABSENT: scleral icterus Mouth exam: PRESENT: moist, tongue midline Respiratory exam: PRESENT: clear to auscultation teresa, symmetrical, unlabored, other - Supplemental oxygen by nasal cannula. ABSENT: rales, rhonchi, wheezes Cardiovascular exam: PRESENT: RRR. ABSENT: diastolic murmur, rubs, systolic murmur Pulses: PRESENT: normal dorsalis pedis pul Vascular exam: PRESENT: normal capillary refill Extremities exam: PRESENT: full ROM. ABSENT: calf tenderness, clubbing, pedal edema Musculoskeletal exam: PRESENT: ambulatory Neurological exam: PRESENT: alert, awake, oriented to person, oriented to place, oriented to time, oriented to situation, CN II-XII grossly intact, other - Right upper extremity numbness. Quality Director 5/5 bilaterally.No facial asymmetry or other focal deficits noted.. ABSENT: motor sensory deficit Psychiatric exam: PRESENT: appropriate affect, normal mood. ABSENT: homicidal ideation, suicidal ideation Skin exam: PRESENT: dry, intact, warm. ABSENT: cyanosis, rash Results Laboratory Results: 07/01/20 04:54 07/01/20 04:54 07/01/20 07/01/20 04:54 04:54 WBC 4.7 RBC 3.57 L Hgb 11.7 L Hct 34.7 L MCV 97 MCH 32.8 MCHC 33.7 RDW 15.2 H Plt Count 104 L Seg Neutrophils % 57.6 Sodium 136.4 L Potassium 4.6 Chloride 99 Carbon Dioxide 29 Anion Gap 8 BUN 28 H Creatinine 1.21 Est GFR ( Amer) > 60 Glucose 200 H Calcium 9.4 06/29/20 16:35 Troponin I < 0.012 Impressions: Chest X-Ray 06/29/20 16:12 IMPRESSION: No acute cardiopulmonary process. Head CT 06/29/20 16:12 IMPRESSION: 1. No acute intracranial hemorrhage, mass, or evidence of acute territorial infarct. 2. Mild chronic small vessel ischemic change. EVIDENCE OF ACUTE STROKE: NO. Head CTA 06/30/20 00:00 IMPRESSION: Unremarkable CT angiogram of the neck for age without dissection or hemodynamically significant stenosis. Unremarkable CTA of the brain without evidence of hemodynamically significant stenosis, aneurysm or AVM. CAROTID STENOSIS REFERENCE USING NASCET CRITERIA: % ICA stenosis = (1 - narrowest ICA diameter/diameter of distal cervical ICA) x 100. Mild - <50% stenosis. Moderate - 50-69% stenosis. Severe - 70-94% stenosis. Near occlusion - 95-99% stenosis. Occluded - 100% stenosis. Head MRI 06/30/20 00:00 IMPRESSION: Focal restricted diffusion in the left thalamus consistent with acute to subacute lacunar infarct. No acute territorial infarct, mass, mass effect or evidence of intracranial hemorrhage. EVIDENCE OF ACUTE STROKE: YES. Left thalamic lacunar infarct Neck CTA 06/30/20 00:00 IMPRESSION: Unremarkable CT angiogram of the neck for age without dissection or hemodynamically significant stenosis. Unremarkable CTA of the brain without evidence of hemodynamically significant stenosis, aneurysm or AVM. CAROTID STENOSIS REFERENCE USING NASCET CRITERIA: % ICA stenosis = (1 - narrowest ICA diameter/diameter of distal cervical ICA) x 100. Mild - <50% stenosis. Moderate - 50-69% stenosis. Severe - 70-94% stenosis. Near occlusion - 95-99% stenosis. Occluded - 100% stenosis. Assessment and Plan - Diagnosis (1) Acute lacunar infarction Is this a current diagnosis for this admission?: Yes Plan: MRI confirms the left thalamus acute to subacute lacunar infarct. CTA head/neck are unremarkable. Echocardiogram pending. Hemoglobin A1c 8.7%. Lipid panel reveals hypertriglycerides; triglycerides 619, total cholesterol 144, LDL 124, HDL 19 Continue daily aspirin and Plavix. Continue full dose atorvastatin. Add fenofibrate. PT/OT consultations requested. (2) COVID-19 Is this a current diagnosis for this admission?: Yes Plan: Covid positive Provide supplemental oxygen as needed maintain saturations greater than 89%. CPAP nightly and as needed. Ivermectin 12 mg daily x 2 doses. As needed nebulizer treatments. Zinc, vitamin D, vitamin C, and melatonin supplementation. Encourage pulmonary toilet. Isolation precautions. (3) Diabetes mellitus Qualifiers: Diabetes mellitus type: type 2 Diabetes mellitus usp insulin use: with complaint adjuster use Diabetes mellitus complication status: without complication Qualified Code(s): E11.9 - Type 2 diabetes mellitus without complications; Z79.4 - half-way (current) use of insulin Is this a current diagnosis for this admission?: Yes Plan: Hemoglobin A1c 8.7%. Patient admits to frequently forgetting to take his insulin. Holding oral medications while admitted. Patient is placed on a consistent carb diet. Lantus 40 daily Accu-Cheks before meals and at bedtime with Humalog for sliding scale coverage. Hypoglycemia protocol in place. Registered dietitian and hematology nurse educator consulted. (4) Hypertension Qualifiers: Hypertension type: essential hypertension Qualified Code(s): I10 - Essential (primary) hypertension Is this a current diagnosis for this admission?: Yes Plan: Continue amlodipine. (5) MAXIMO (obstructive sleep apnea) Is this a current diagnosis for this admission?: Yes Plan: CPAP qHS and prn Encouraged use; education. (6) Hyperlipemia Qualifiers: Hyperlipidemia type: mixed hyperlipidemia Qualified Code(s): E78.2 - Mixed hyperlipidemia Is this a current diagnosis for this admission?: Yes Plan: Continue full dose statin. Add fenofibrate. - Time Time Spent with patient: 25-34 minutes Medications reviewed and adjusted accordingly: Yes Anticipated Discharge Disposition: Home, Self Care Anticipated Discharge Timeframe: within 48 hours - pending O2 requirement
[2020-07-01] MEDS ORDERED: ATORVASTATIN CALCIUM 80 MG TABLET PO SCH (22:00)
[2020-07-02] MEDS: INSULIN LISPRO 100 UNIT/ML 3 ML VIAL SUBCUT SCH ×2 (08:00→11:00)
[2020-07-02] MEDS: DULOXETINE HCL 30 MG CAPSULE.DR PO SCH (09:40)
[2020-07-02] MEDS: CHOLECALCIFEROL (D3) 1,000 UNIT (25 MCG) TABLET PO SCH (09:40)
[2020-07-02] MEDS: CELECOXIB 200 MG CAPSULE PO SCH (09:40)
[2020-07-02] MEDS: GABAPENTIN 300 MG CAPSULE PO SCH ×2 (09:40→14:27)
[2020-07-02] MEDS: CYANOCOBALAMIN (VITAMIN B-12) 1,000 MCG TABLET PO SCH (09:40)
[2020-07-02] MEDS: CLOPIDOGREL BISULFATE 75 MG TABLET PO SCH (09:41)
[2020-07-02] MEDS: MULTIVITAMIN TABLET PO SCH (09:41)
[2020-07-02] MEDS: ASCORBIC ACID 500 MG TABLET PO SCH (09:41)
[2020-07-02] MEDS: FENOFIBRATE NANOCRYSTALLIZED 145 MG TABLET PO SCH (09:41)
[2020-07-02] MEDS: PYRIDOXINE HCL 50 MG TABLET PO SCH (09:41)
[2020-07-02] MEDS: AMLODIPINE BESYLATE 10 MG TABLET PO SCH (09:42)
[2020-07-02] MEDS: CETIRIZINE 10 MG TABLET PO SCH (09:42)
[2020-07-02] MEDS: ENOXAPARIN SODIUM INJ 40 MG/0.4 ML DISP.SYRIN SUBCUT SCH (09:43)
[2020-07-02] MEDS: FLUTICASONE NASAL SPRAY 50 MCG/SPRY 120 SPRAY/16 GM NASL SCH (09:43)
[2020-07-02] MEDS: INSULIN GLARGINE,HUM.REC.ANLOG 1,000 UNIT/10 ML VIAL SUBCUT SCH (09:44)
[2020-07-02] MEDS ORDERED: IVERMECTIN 3 MG TABLET PO ONE (10:00)
[2020-07-02 16:27] VITALS: BP 115/82
--- NOTE | 2020-07-02 18:46 | PDOC DISCHARGE SUMMARY ---
Impression - Admit/DC Date/PCP Admission Date/Primary Care Provider: 06/30/20 01:[facility] Discharge Date: 07/02/20 - Discharge Diagnosis (1) Acute lacunar infarction Is this a current diagnosis for this admission?: Yes (2) COVID-19 Is this a current diagnosis for this admission?: Yes (3) Diabetes mellitus Is this a current diagnosis for this admission?: Yes (4) Hypertension Is this a current diagnosis for this admission?: Yes (5) MAXIMO (obstructive sleep apnea) Is this a current diagnosis for this admission?: Yes (6) Hyperlipemia Is this a current diagnosis for this admission?: Yes - Additional Information Discharge Diet: Cardiac, Diabetic Discharge Activity: Activity As Tolerated, Balance Activity w/Rest, Slowly Increase Activity Referrals: [facility] [Primary Care Provider] - (Follow up within 1 week. Patient will have to make own appointment. MA does not allow anyone but patient to make appointment.) Prescriptions: Pen Needle, Diabetic [1St Tier Unifine Pentips Plus] 1 each MC DAILY #100 dis.needle Aspirin [Adult Low Dose Aspirin EC] 81 mg PO DAILY #30 tablet. Insulin Glabilly,Hum.rec.anlog [Lantus Insulin 100 Unit/mL Insulin Pen] 40 unit SUBCUT QHS #10 ml Amlodipine Besylate [Norvasc 10 mg Tablet] 10 mg PO DAILY #30 tablet Clopidogrel Bisulfate [Plavix 75 mg Tablet] 75 mg PO DAILY #20 tablet Fenofibrate Nanocrystallized [Tricor 145 mg Tablet] 145 mg PO DAILY #30 tablet Home Medications: Multivitamin [Multi-Day Vitamins] 1 each PO DAILY 06/20/11 Celecoxib [Celebrex 100 mg Capsule] 200 tab PO BID 09/13/15 Cyanocobalamin (Vitamin B-12) [Vitamin B-12] 4 tab PO DAILY 09/13/15 Duloxetine HCl [Cymbalta] 120 mg PO DAILY 09/13/15 Ascorbic Acid [Vitamin C 500 mg Tablet] 500 mg PO DAILY 06/30/20 Atorvastatin Calcium [Lipitor 80 mg Tablet] 80 mg PO QHS 06/30/20 Cetirizine HCl [Zyrtec] 10 mg PO DAILY 06/30/20 Cholecalciferol (Vitamin D3) [Vitamin D3 3000 unit Tablet] 75 mcg PO DAILY 06/30/20 Fluticasone Propionate [Flonase Nasal Superior 50 Mcg/Superior 16 gm] 2 spray NASL DAILY 06/30/20 Gabapentin [Neurontin] 600 mg PO TID 06/30/20 Pyridoxine HCl (Vitamin B6) [Vitamin B-6] 50 mg PO DAILY 06/30/20 Amlodipine Besylate [Norvasc 10 mg Tablet] 10 mg PO DAILY #30 tablet 07/02/20 Aspirin [Adult Low Dose Aspirin EC] 81 mg PO DAILY #30 tablet. 07/02/20 Clopidogrel Bisulfate [Plavix 75 mg Tablet] 75 mg PO DAILY #20 tablet 07/02/20 Fenofibrate Nanocrystallized [Tricor 145 mg Tablet] 145 mg PO DAILY #30 tablet 07/02/20 Insulin Glargine,Hum.rec.anlog [Lantus Insulin 100 Unit/mL Insulin Pen] 40 unit SUBCUT QHS #10 ml 07/02/20 Pen Needle, Diabetic [1St Tier Unifine Pentips Plus] 1 each MC DAILY #100 dis.needle 07/02/20 History of Present Illiness History of Present Illness: Per H&P by Dr. Srivastava: JEANNIE BARONE is a 54 year old male Patient has hypertension and type 2 diabetes. He never had a stroke or acute cardiovascular event in his life. Around 9:00 in the morning he started experiencing fairly abruptly right-sided tingling and numbness, complete loss of sensation. He was able to walk and continue to perform motor tasks but he said his sensation was completely gone on the right side. The patient is left- handed. He did not have any headache, no dizziness, no chest pain no shortness of breath. Later he decided to come to the emergency department. Initial neurological examination did not detect any other abnormality except loss of sensation on the right side. He had CT scan of the head which was unremarkable. He was not a candidate for thrombolytic treatment because of time window. When I arrived to see the patient he appeared to be comfortable. He said the numbness or, full loss of sensation is the same as before, did not improve. He denied having any other complaint. His gait is somewhat unsteady but it is chronic secondary to neuropathy. 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 He is a . Hospital Course Hospital Course: (1) Acute lacunar infarction MRI confirms the left thalamus acute to subacute lacunar infarct. CTA head/neck are unremarkable. Echocardiogram has been completed; formal report pending. Hemoglobin A1c 8.7%. Lipid panel reveals hypertriglycerides; triglycerides 619, total cholesterol 144, LDL 124, HDL 19 Continue daily aspirin and Plavix. Continue full dose atorvastatin. Added fenofibrate. PT/OT consultations obtained; recommended outpatient OT services. (2) COVID-19 COVID positive Patient was supported w/ supplemental oxygen; now maintaining O2 saturations while ambulatory on room air. Received Ivermectin 12 mg daily x 2 doses. Zinc, vitamin D, vitamin C, and melatonin supplementation provided. Encourage pulmonary toilet; recommended that patient take IS home for continued use. Isolation precautions; continue home quarantine through 07/10/20. (3) Diabetes mellitus Hemoglobin A1c 8.7%. Patient admits to frequently forgetting to take his insulin. Patient is placed on a consistent carb diet. Resume home dose Lantus and metformin at discharge. Encouraged medication and dietary compliance. Registered dietitian and environmental educator were consulted. Outpatient PCP follow up. (4) Hypertension Well controlled at present. Continue amlodipine. (5) MAXIMO (obstructive sleep apnea) CPAP qHS and prn Encouraged use; education. (6) Hyperlipemia Continue full dose statin. Add fenofibrate. Cardiac diet. Physical Exam Vital Signs: Temp Pulse Resp BP Pulse Ox 98.5 F 86 18 123/69 98 07/02/20 16:10 07/02/20 16:10 07/02/20 16:10 07/02/20 16:10 07/02/20 16:10 Intake & Output 07/01/20 07/02/20 07/03/20 06:59 06:59 06:59 Intake Total 980 676 240 Balance 980 676 240 Weight 150.1 kg 150.1 kg General appearance: PRESENT: no acute distress, cooperative, morbidly obese, w ell-developed, well-nourished Head exam: PRESENT: atraumatic, normocephalic Eye exam: PRESENT: conjunctiva pink, EOMI, PERRLA. ABSENT: scleral icterus Mouth exam: PRESENT: moist, tongue midline Neck exam: ABSENT: carotid bruit, JVD, lymphadenopathy, thyromegaly Respiratory exam: PRESENT: clear to auscultation teresa, symmetrical, unlabored, other - Ambulatory on room air. ABSENT: rales, rhonchi, wheezes Cardiovascular exam: PRESENT: RRR, +S1, +S2. ABSENT: diastolic murmur, rubs, systolic murmur Pulses: PRESENT: normal dorsalis pedis pul Vascular exam: PRESENT: normal capillary refill GI/Abdominal exam: PRESENT: normal bowel sounds, soft. ABSENT: distended, guarding, mass, organolmegaly, rebound, tenderness Rectal exam: PRESENT: deferred Extremities exam: PRESENT: full ROM. ABSENT: calf tenderness, clubbing, pedal edema Neurological exam: PRESENT: alert, awake, oriented to person, oriented to place, oriented to time, oriented to situation, CN II-XII grossly intact, other - Right upper extremity numbness; improved. Twister Frame Tender 5/5 bilaterally. No facial asymmetry or other focal deficits noted.. ABSENT: motor sensory deficit Psychiatric exam: PRESENT: appropriate affect, normal mood. ABSENT: homicidal ideation, suicidal ideation Skin exam: PRESENT: dry, intact, warm. ABSENT: cyanosis, rash Results Laboratory Results: WBC 4.7 10^3/uL (4.0-10.5) 07/01/20 04:54 RBC 3.57 10^6/uL (4.35-5.55) L 07/01/20 04:54 Hgb 11.7 g/dL (13.5-17.0) L 07/01/20 04:54 Hct 34.7 % (37.9-51.0) L 07/01/20 04:54 MCV 97 fl (80-97) 07/01/20 04:54 MCH 32.8 pg (27.0-33.4) 07/01/20 04:54 MCHC 33.7 g/dL (32.0-36.0) 07/01/20 04:54 RDW 15.2 % (11.5-14.0) H 07/01/20 04:54 Plt Count 104 10^3/uL (150-450) L 07/01/20 04:54 Lymph % (Auto) 29.8 % (13-45) 07/01/20 04:54 Fajardo % (Auto) 8.0 % (3-13) 07/01/20 04:54 Eos % (Auto) 4.2 % (0-6) 07/01/20 04:54 Baso % (Auto) 0.4 % (0-2) 07/01/20 04:54 Absolute Neuts (auto) 2.7 10^3/uL (1.7-8.2) 07/01/20 04:54 Absolute Lymphs (auto) 1.4 10^3/uL (0.5-4.7) 07/01/20 04:54 Absolute Monos (auto) 0.4 10^3/uL (0.1-1.4) 07/01/20 04:54 Absolute Eos (auto) 0.2 10^3/uL (0.0-0.6) 07/01/20 04:54 Absolute Basos (auto) 0.0 10^3/uL (0.0-0.2) 07/01/20 04:54 Seg Neutrophils % 57.6 % (42-78) 07/01/20 04:54 PT 12.4 SEC (11.4-15.4) 06/29/20 16:35 INR 0.90 06/29/20 16:35 APTT 32.2 SEC (23.5-35.8) 06/29/20 16:35 Sodium 136.4 mmol/L (137-145) L 07/01/20 04:54 Potassium 4.6 mmol/L (3.6-5.0) 07/01/20 04:54 Chloride 99 mmol/L (98-107) 07/01/20 04:54 Carbon Dioxide 29 mmol/L (22-30) 07/01/20 04:54 Anion Gap 8 (5-19) 07/01/20 04:54 BUN 28 mg/dL (7-20) H 07/01/20 04:54 Creatinine 1.21 mg/dL (0.52-1.25) 07/01/20 04:54 Est GFR ( Amer) > 60 (>60) 07/01/20 04:54 Est GFR (MDRD) Non-Af > 60 (>60) 07/01/20 04:54 Glucose 200 mg/dL (75-110) H 07/01/20 04:54 POC Glucose 359 mg/dL (70-110) H 07/02/20 10:39 Hemoglobin A1c % 8.7 % (4.7-6.0) H 06/30/20 04:35 Calcium 9.4 mg/dL (8.4-10.2) 07/01/20 04:54 Total Bilirubin 0.4 mg/dL (0.2-1.3) 06/29/20 16:35 Direct Bilirubin 0.2 mg/dL (0.0-0.4) 06/29/20 16:35 Neonat Total Bilirubin Not Reportable 06/29/20 16:35 Neonat Direct Bilirubin Not Reportable 06/29/20 16:35 Neonat Indirect Bili Not Reportable 06/29/20 16:35 AST 21 U/L (17-59) 06/29/20 16:35 ALT 17 U/L (<50) 06/29/20 16:35 Alkaline Phosphatase 65 U/L (38-126) 06/29/20 16:35 Troponin I < 0.012 ng/mL 06/29/20 16:35 Total Protein 6.7 g/dL (6.3-8.2) 06/29/20 16:35 Albumin 3.8 g/dL (3.5-5.0) 06/29/20 16:35 Triglycerides 619 mg/dL (<150) H 06/30/20 04:35 Cholesterol 144.08 mg/dL (0-200) 06/30/20 04:35 LDL Cholesterol Direct 124 mg/dL (<100) H 06/30/20 04:35 VLDL Cholesterol, Calc UNABLE TO CALCULATE 06/30/20 04:35 HDL Cholesterol 19 mg/dL (>40) L 06/30/20 04:35 Influenza A (RT-PCR) NEGATIVE (NEGATIVE) 06/30/20 18:10 Influenza B (RT-PCR) NEGATIVE (NEGATIVE) 06/30/20 18:10 RSV (RT-PCR) NEGATIVE (NEGATIVE) 06/30/20 18:10 SARS-CoV-2 Rap RNA(RT-PCR) POSITIVE (NEGATIVE) 06/30/20 18:10 06/29/20 16:35 Troponin I < 0.012 Impressions: Chest X-Ray 06/29/20 16:12 IMPRESSION: No acute cardiopulmonary process. Head CT 06/29/20 16:12 IMPRESSION: 1. No acute intracranial hemorrhage, mass, or evidence of acute territorial infarct. 2. Mild chronic small vessel ischemic change. EVIDENCE OF ACUTE STROKE: NO. Head CTA 06/30/20 00:00 IMPRESSION: Unremarkable CT angiogram of the neck for age without dissection or hemodynamically significant stenosis. Unremarkable CTA of the brain without evidence of hemodynamically significant stenosis, aneurysm or AVM. CAROTID STENOSIS REFERENCE USING NASCET CRITERIA: % ICA stenosis = (1 - narrowest ICA diameter/diameter of distal cervical ICA) x 100. Mild - <50% stenosis. Moderate - 50-69% stenosis. Severe - 70-94% stenosis. Near occlusion - 95-99% stenosis. Occluded - 100% stenosis. Head MRI 06/30/20 00:00 IMPRESSION: Focal restricted diffusion in the left thalamus consistent with acute to subacute lacunar infarct. No acute territorial infarct, mass, mass effect or evidence of intracranial hemorrhage. EVIDENCE OF ACUTE STROKE: YES. Left thalamic lacunar infarct Neck CTA 06/30/20 00:00 IMPRESSION: Unremarkable CT angiogram of the neck for age without dissection or hemodynamically significant stenosis. Unremarkable CTA of the brain without evidence of hemodynamically significant stenosis, aneurysm or AVM. CAROTID STENOSIS REFERENCE USING NASCET CRITERIA: % ICA stenosis = (1 - narrowest ICA diameter/diameter of distal cervical ICA) x 100. Mild - <50% stenosis. Moderate - 50-69% stenosis. Severe - 70-94% stenosis. Near occlusion - 95-99% stenosis. Occluded - 100% stenosis. Plan Plan of Treatment: Patient is discharged home in stable condition. He is advised follow-up with his primary care provider within 1 week. He is instructed to continue a consistent carb/cardiac diet. Continue medications as prescribed. Recommend outpatient PT/OT. Continue COVID-19 quarantine through 07/10/2020. Return to the emergency department, as needed, for concerning symptoms. Time Spent: Greater than 30 Minutes Stroke Is this a Stroke Patient?: Yes Stroke Pt being discharged on Anti-thrombolytic therapy?: Yes Stroke Pt being discharged on Anti-coagulation therapy?: No Reason(s) for not prescribing Anti-coagulation therapy:: Not indicated Stroke Pt being discharged on Statins?: Yes Acute Heart Failure Is this a Heart Failure Patient?: No
--- NOTE | 2020-07-03 11:35 | XCELERA REPORT ---
[address] [address] Transthoracic Echocardiogram Report Name: JEANNIE BARONE Age: 54 yrs Gender: Male : 1965 Patient Status: Inpatient Patient Location: [facility]^A Study Date: 07/02/2020 03:40 PM Height: 69 in Weight: 333 lb BSA: 2.6 m2 Procedure: A complete two-dimensional transthoracic echocardiogram was performed (2D, M-mode, spectral and color flow Doppler). The study was technically good with many images being of high quality. Reason For Study: stroke like symptoms Ordering Physician: FERNIE JOHN Performed By: Mary Peña Interpretation Summary The left ventricle is grossly normal size. Left ventricular systolic function is normal. The Ejection Fraction estimate is 60-65%. Doppler measurements suggest impaired left ventricular relaxation, which is associated with grade I/IV or mild diastolic dysfunction. Interatrial septum is mobile and possible even aneurysmal. Trace MR, trace TR. Aortic valve is trileaflet. Aneurysmal interatrial septum has been associated with strokes therefore recommend limited echocardiogram with agitated saline contrast study. No prior studies for comparison. MMode/2D Measurements & Calculations RVDd: 2.6 cm LVIDd: 4.5 cm FS: 35.1 % Ao root diam: 3.4 cm IVSd: 1.2 cm LVIDs: 2.9 cm EDV(Teich): 90.7 ml Ao root area: 9.1 cm2 LVPWd: 1.00 cm ESV(Teich): 32.1 ml EF(Teich): 64.6 % Doppler Measurements & Calculations MV E max elisha: MV dec slope: Ao V2 max: LV V1 max P.3 cm/sec 403.9 cm/sec2 126.3 cm/sec 6.3 mmHg MV A max elisha: MV dec time: 0.15 sec Ao max PG: LV V1 mean P.4 cm/sec 6.4 mmHg 3.0 mmHg MV E/A: 0.71 Ao V2 mean: LV V1 max: 90.1 cm/sec 126.0 cm/sec Ao mean PG: LV V1 mean: 3.6 mmHg 80.0 cm/sec Ao V2 VTI: 22.3 cmLV V1 VTI: 24.3 cm PA V2 max: TR max elisha: 77.7 cm/sec 268.6 cm/sec PA max P.4 mmHgTR max P.9 mmHg Left Ventricle The left ventricle is grossly normal size. Left ventricular systolic function is normal. The Ejection Fraction estimate is 60-65%. Doppler measurements suggest impaired left ventricular relaxation, which is associated with grade I/IV or mild diastolic dysfunction. No regional wall motion abnormalities noted. Right Ventricle The right ventricle is normal in size, thickness and function. The right ventricular systolic function is normal. Atria The right atrium is normal. The left atrial size is normal. There is no Doppler evidence for an interatrial shunt. Interatrial septum is mobile and possible even aneurysmal. Mitral Valve The mitral valve is normal in structure and function. There is a trace amount of mitral regurgitation. Aortic Valve The aortic valve is sclerotic, but shows no functional abnormality. Aortic valve is trileaflet. No aortic regurgitation is present. Tricuspid Valve The tricuspid is normal in structure and function. There is a trace or physiologic amount of tricuspid regurgitation. Right ventricular systolic pressure is at the upper limits of normal. Pulmonic Valve The pulmonic valve is normal in structure and function. There is no pulmonic valvular regurgitation. Effusions There is no pericardial effusion. There is no pleural effusion. : FERNIE JOHN Antonio
== END 2020-07-02 16:45 | disposition home or self-care (01) ==
LOC: ER 15:52 → EH 06-30 01:50 → 3S 06-30 03:11 → 3N 06-30 20:20
PROVIDERS: ADMIT Internal Medicine; ATTEND Registered Nurse
DX: I63.81 Other cerebral infarction due to occlusion or stenosis of small artery (principal); U07.1 COVID-19; I10 Essential (primary) hypertension; E11.40 Type 2 diabetes mellitus with diabetic neuropathy, unspecified; G47.33 Obstructive sleep apnea (adult) (pediatric); E78.5 Hyperlipidemia, unspecified; R29.704 NIHSS score 4; Z79.899 Other long term (current) drug therapy; Z79.82 Long term (current) use of aspirin; Z79.4 Long term (current) use of insulin
CPT/HCPCS: 93005; 99285; 36415 ×3; 82962 ×3; 85025 ×3; 85610; 85730; 0241U ×4; 80048 ×2; 80053; 84484; 83036; 80061; 93306; 70551; 71045; 70450; 70496; 70498; 94799; 93010; 94660 ×2; 97530; 97116; 97161; 97110; 97165; G0378 ×4; J1815 ×6; J1650 ×3; J3490 ×7; C9803